=== PATIENT | female | born 1935 | race Caucasian/White ===

== ENCOUNTER → 2017-11-23 10:02 | Outpatient (CLI) | payer MEDICARE, OTHER, SELFPAY ==
--- NOTE | 2017-11-23 | DI.RAD.S_ITS ---
PROCEDURE: XR HIP W PEL IF DONE RT 2V INDICATIONS: RIGHT HIP PAIN TECHNIQUE: 2 views of the hip were acquired. COMPARISON: [facility], CR, L-SPINE 2-3 VIEWS, 02/28/2016, 16:04. [facility], CR, XR PELVIS W LATERAL HIP LT, 08/08/2015, 11:18. [facility], CR, L-SPINE 2-3 VIEWS, 12/26/2016, 9:33. [facility], CR, HIP 2V RIGHT, 01/09/2015, 11:05. FINDINGS: Bones: No fractures or dislocations. No suspicious bony lesions. The visualized pelvic ring appears intact. There is severe narrowing of the right hip joint with near bone on bone contact along the axial portion of the joint, subchondral sclerosis and cystic change. Periarticular osteophyte formation is present. Acetabula protrusio noted. Soft tissues: No suspicious soft tissue calcifications or masses. 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 Dictated by: Fredrick Sandoval RRA Interpreted: Teetee Savage MD on 11/23/2017 at 10:44 Approved by: Teetee Savage MD, PhD on 11/23/2017 at 12:03
== END ==
PROVIDERS: Family Provider Family Medicine; PCP Family Medicine; Visit Provider Family Medicine
DX: M25.551 Pain in right hip (principal); M16.11 Unilateral primary osteoarthritis, right hip; M24.7 Protrusio acetabuli
CPT/HCPCS: 73502

== ENCOUNTER → 2018-04-07 11:53 | Outpatient (CLI) | payer MEDICARE, OTHER, SELFPAY ==
[2018-04-07 12:35] LABS: Add Manual Diff / Slide Review NO; Basophils Absolute Auto 100 /uL (0-100); Basophils Percent Auto 0.7 % (0-2); Eosinophils Absolute Auto 300 /uL (0-450); Hematocrit 40.4 % (36-46); Hemoglobin 13.2 g/dL (12.0-16.0); Lymphocytes Absolute Auto 1700 /uL (1100-4500); Mean Corpuscular HGB Conc 32.7 % (30-36); Mean Corpuscular Hemoglobin 29.3 PG (26-34); Mean Corpuscular Volume 89.4 fL (80-100); Monocytes Absolute Auto 500 /uL (0-900); Monocytes Percent Auto 6.9 % (3-14); Neutrophils Absolute Auto 4800 /uL (1500-7000); Neutrophils Percent Auto 65.4 % (50-75); Platelet Count 194 X10^3/uL (150-400); Red Blood Cell Count 4.52 X10^6/uL (4.0-5.2); Red Cell Distribution Width 14.1 % (11.6-14.8); White Blood Cell Count 7.3 X10^3/uL (4.5-11.0)
[2018-04-07 12:45] LABS: Hemoglobin A1C% w Est Avg Glu 5.7 % (4.0-6.0)
[2018-04-07 12:58] LABS: Blood Urea Nitrogen 21 mg/dL (7-17); Calcium 9.5 mg/dL (8.4-10.2); Carbon Dioxide 28 mmol/L (22-32); Chloride 106 mmol/L (98-107); Estimated Glomerular Filt Rate > 60.0 mL/min (>60); Glucose 93 mg/dL (80-110); HEMOLYSIS < 15 (0-50); Potassium 4.2 mmol/L (3.4-5.1); Sodium 141 mmol/L (137-145)
[2018-04-07 13:58] LABS: Appearance Urine UA CLEAR; Bilirubin Urine UA NEGATIVE (NEGATIVE); Color Urine UA YELLOW; Glucose Urine UA NEGATIVE (Negative); Ketones Urine UA NEGATIVE (NEGATIVE); Leukocyte Esterase Urine UA NEGATIVE (NEGATIVE); Nitrite Urine UA NEGATIVE (Negative); Occult Blood Urine UA TRACE-LYSED (Negative); Protein Urine UA NEGATIVE (Negative); Specific Gravity Urine UA 1.025 (1.000-1.035); Urobilinogen Urine UA 0.2 E.U./dL (0.2)
[2018-04-07 14:16] LABS: Amorphous Sediment Urine 1+; Bacteria Urine Occasional (0-1); Culture Indicated Urine Cult Not Indicated; Mucus Urine 1+ (Negative); RBC Urine 0-1/HPF (0-5/HPF); Squamous Epithelial Cell Urine 1-5 /HPF; WBC Urine 1-5/HPF (0-5/HPF)
== END ==
PROVIDERS: Family Provider Family Medicine; PCP Family Medicine; Visit Provider Orthopaedic Surgery
DX: N39.9 Disorder of urinary system, unspecified (principal); Z13.1 Encounter for screening for diabetes mellitus; Z01.818 Encounter for other preprocedural examination; Z01.812 Encounter for preprocedural laboratory examination
CPT/HCPCS: 36415; 80048; 81001; 83036; 85025; 93005; 93010

== ENCOUNTER 2018-06-01 06:14 | Inpatient (IN) | payer MEDICARE, OTHER, SELFPAY ==
[2018-05-18 14:02] VITALS: BMI 28.8
[2018-06-01] VITALS (23 sets, daily range): BP systolic 104–174; BP diastolic 45–85; PULSE 43–96; RESP 11–21; TEMP 36.1–37; O2SAT 94–100; BMI 27.1
--- NOTE | 2018-06-01 | DI.RAD.S_ITS ---
PROCEDURE: XR HIP W PEL IF DONE RT 2V INDICATIONS: post operative right hip TECHNIQUE: 2 views of the hip were acquired. COMPARISON: [facility], CR, XR HIP W PEL IF DONE RT 2V, 06/01/2018, 9:14. FINDINGS: Bones: Expected postoperative changes are present related to a right hip arthroplasty. The metallic prosthetic components appear to be appropriately positioned without periprosthetic fracture evident. Postoperative changes of the left hip are also present related to previous left hip arthroplasty. No displaced pelvic fractures are identified. Soft tissues: No suspicious soft tissue calcifications or masses. Expected postoperative changes within the soft tissues overlying the right hip are evident but there is a soft tissue air and edema. A surgical drainage catheter is present. No unexpected radiopaque foreign bodies are appreciated. IMPRESSION: Expected post surgical changes related to right hip arthroplasty. Dictated by: Juarez Buck M.D. on 06/01/2018 at 10:39 Approved by: Juarez Buck M.D. on 06/01/2018 at 10:40
--- NOTE | 2018-06-01 06:00 | DI.RAD.S_ITS ---
PROCEDURE: XR HIP W PEL IF DONE RT 2V INDICATIONS: Intraoperative right total hip. TECHNIQUE: Single AP view of the pelvis/bilateral hips was obtained. COMPARISON: [facility] [place], CR, XR PELVIS WITH BILATERAL HIPS 5 VIEWS, 04/07/2018, 11:05. [facility], CR, XR HIP W PEL IF DONE RT 2V, 11/23/2017, 10:13. [facility], CR, HIP 2V RIGHT, 01/09/2015, 11:05. [facility] CR, HIP 2V RIGHT, 04/27/2013, 10:43. [facility], CR, HIP 2V RIGHT, 10/22/2011, 13:30. FINDINGS: Bones: External radiopaque hardware projects over the left iliac wing, obscuring underlying anatomy. Interval placement of a right total hip arthroplasty with right arthroplasty hardware demonstrating no periprosthetic fracture or loosening. There is redemonstration of the left total hip arthroplasty, without evidence of acute hardware complication. Partially imaged posterior lumbar spinal fusion hardware noted. Soft tissues: Soft tissue emphysema and edema of the right hip incision with postsurgical change. IMPRESSION: 1. Interval right total hip arthroplasty placement without radiographic evidence of acute hardware complication. 2. Redemonstrated left total hip arthroplasty without radiographic evidence of acute hardware complication. Dictated by: Rod Reese M.D. on 06/01/2018 at 10:16 Approved by: Rod Reese M.D. on 06/01/2018 at 10:22
[2018-06-01] MEDS: VANCOMYCIN 1,000 MG/200 ML FROZ.PIGGY 200 MG IV (07:05)
[2018-06-01] MEDS: LACTATED RINGERS 1,000 ML 42 ML IV ×2 (07:05→11:09)
[2018-06-01] MEDS: PREGABALIN 75 MG CAPSULE PO (07:06)
[2018-06-01] MEDS: CELECOXIB 200 MG CAPSULE PO (07:06)
[2018-06-01] MEDS: ACETAMINOPHEN 325 MG TABLET 975 MG PO ×3 (07:06→21:52)
[2018-06-01] MEDS: CEFAZOLIN 2 GM/100 ML FROZ.PIGGY IV ×3 (08:09→23:44)
--- NOTE | 2018-06-01 08:37 | SUR.OPER ---
Lateral on padded OR bed. Gel axillary roll. Arms secured on padded armboard with pillow supporting top arm. Padded hip positioner braces x4 - anterior and posterior chest and pelvis. Additional gel pad used anterior pelvis. Gel pad under bottom leg from knee to foot and secured with tape over sheet.
[2018-06-01] MEDS: BUPIVACAINE 0.25% W/ EPI 30 ML VIAL 60 ML INJ (08:43)
[2018-06-01] MEDS: BUPIVACAINE LIPOSOME 266 MG/20 ML VIAL INJ (08:44)
[2018-06-01] MEDS: POVIDONE-IODINE 15 ML, SODIUM CHLORIDE 0.9% 250 ML TOP (08:47)
[2018-06-01] MEDS: SODIUM CHLORIDE IRRIG SOLUTION 250 ML, EPINEPHrine 1 MG IRR (08:49)
[2018-06-01] MEDS: TRANEXAMIC ACID 1,000 MG VIAL 1000 MG INJ ×2 (09:32→09:33)
--- NOTE | 2018-06-01 10:45 | PM.OP.1 ---
Operative Date/Time/Diagnoses Date of procedure: 06/01/18 Time of procedure: 08:00 Pre-op diagnosis: Right hip osteoarthritis Post-op diagnosis: same Procedure & Clinicians Procedure: Right total hip arthroplasty Same procedure as scheduled: Yes Indications: The patient has had progressively worsening right hip pain with radiographic changes consistent with arthritis. Non-operative management has failed and the patient has requested total hip replacement. The risks, benefits and alternatives to surgery were discussed with the patient prior to proceeding. Risks discussed included, but were not limited to, failure to relieve pain, leg length discrepancy, dislocation, stiffness, infection, nerve damage, deep venous thrombosis, pulmonary embolism, stroke, coma, heart attack, permanent paralysis and , as well as the potential need for eventual revision of the prosthetic. 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 The patient received pre-operative antibiotics and was taken to the operating room and placed on the operative table in the left lateral decubitus position after satisfactory anesthesia. A multimedia authoring specialist out was performed. The right leg was prepared from the ankle to the iliac crest with ChloroPrep in the usual fashion and draped through sterile drapes. The hip was approached through an approximately 20 cm incision centered over the greater trochanter and curving gently posteriorly as it went proximally. This was carried sharply to the fascia cayden, which was divided and retracted with a self retaining retractor. The trochanteric bursa was excised with care being taken to avoid the sciatic nerve, which was identified and protected throughout the case. The short external rotators were incised and the capsulomuscular flap was raised and tagged for later repair. The hip was dislocated, and a femoral neck osteotomy performed approximately 15 mm above the lesser trochanter. Retractors were placed around the femur. The canal was opened with a box cutting osteotome, followed by a T handled reamer and a lateralizing reamer. The chili pepper broach was then used, followed by sequential broaching until there was good stability of the broach in the femur. Retractors were placed to expose the acetabulum. The labrum and central soft tissues were removed. Reaming was performed initially going up in 2 mm increments, then 1 mm increments until good bite was obtained with an odd sized reamer. The cup 1 mm larger than the last reamer was then inserted using the appropriate anteversion guides. A trial neutral liner was placed. The broach was placed in the canal. A trial head and neck were then placed and the hip relocated and checked for leg length and stability. An intraoperative film confirmed the component position and no evidence of fracture. The patient was stable in the position of sleep, of squatting, and could be put through a range of motion with 45 degrees internal rotation without dislocation. At 90 degrees flexion, internal rotation to 80 was possible before dislocation. This was felt to be satisfactory and the appropriate components were opened, and the trials were removed. The acetabulum was checked and stabilized further with a single 15mm screw that had good bite. The acetabular liner was impacted into position. The final stem was then impacted into the prepared femoral canal. A brief Betadine soak was performed while trialing with head options. The hip was meticulously irrigated with normal saline. Finally the femoral head was impacted onto the stem. The acetabulum was cleared of all material and the hip relocated one final time. The capsulomuscular flap was then repaired to the greater trochanter though an awl hole using the tag sutures. The short external rotators were repaired with a nonabsorbable suture. A deep drain was placed and brought out anteriorly. The fascia cayden was closed with black braided nylon. The subcutaneous layer was closed with barbed sutures and SteriStrips. An Aquacel Ag dressing was applied and the patient was taken to recovery having tolerated the procedure well. Complications: none Condition: stable Disposition: Acute Care Plan for aftercare: The patient will be maintained on a standard total hip replacement protocol with weight bearing as tolerated and posterior hip precautions. The patient will receive Aspirin and sequential compression devices for DVT prophylaxis. The patient will be discharged home when safe for the home environment.
[2018-06-01] MEDS: fentaNYL 100 MCG/2 ML INJ 50 MCG IV ×2 (10:48→11:16)
[2018-06-01] MEDS: hydrOXYzine 50 MG/ML INJ 25 MG IM (10:56)
--- NOTE | 2018-06-01 12:22 | SUR.PHASEI ---
Post op PACU Note: Patient stable. HR 40's. Asymptomatic sinus bradycardia. Single short burst of HR in 90- 105 then HR consistently in 40-50's. Dr. William / Dr. Head informed. EKG verbal order completed. Patient awake, responsive. Pain level 5/10. Stable for transfer to Acute Care when cleared by Anesthesia/Sonido.
[2018-06-01] MEDS: LACTATED RINGERS 1,000 ML 125 ML IV ×2 (13:27→22:01)
[2018-06-01] MEDS: TRAMADOL 50 MG TABLET PO (13:39)
--- NOTE | 2018-06-01 14:22 | SUR.PHASEI ---
Late entry: Patient stable and transfered to IP room 213. VSS on arrival with HR 58. Verbal report given at bedside to Joann MULLINS. Student nurse present. Dressing CDI to right hip, SCD's on. IV site intact. Hemovac compressed with scan sanguinous drainage in tubing. Family in waiting room. Continue with plan of care.
--- NOTE | 2018-06-01 14:41 | PC.NURSE ---
Day Shift- Report rec'd from SUSANNA Kunz in PACU at 1235. Previously had requested to verify transfer orders with HR of 45-47. EKG done in PACU. Other vital signs stable. Pt arrived to unit via bed at 1245. Right hip aquacell dressing CDI with Hemovac in place on compression suction. CMS+, PPP weak but palpable to right dorsal foot. On 2L NC at 98%, on continuous O2 monitoring. Pt stated very uncomfortable to right hip and lower back area, repositioned onto left side which pt favors. Reported 6-8/10 pain, on IV PRN meds ordered, fax sent to Dr. Head in surgery. As pt was uncomfortable, repositioned onto back and HOB raised. Dr. Head came and saw pt at bedside around 1330. Tramadol prn given at 1340 with water, juice and chocolate pudding. Upon reassessment at 1440, pt c/o 4/10 pain. Family in room.
--- NOTE | 2018-06-01 15:00 | PT.IIE ---
Current Diagnoses Unilateral primary osteoarthritis, right hip (06/01/18) Surgery Performed Operation Date: 06/01/18 07:45 Actual Procedures p Total Hip Arthroplasty Posterior(Right) - Chelsea Head MD Surgical History (Last Updated 05/18/18 @ 14:31 by Diane Cruz, RN) History of bilateral cataract extraction (Acute) History of prophylactic mastectomy of left breast (Acute) History of total left hip arthroplasty (Acute) Hx of appendectomy (Acute) Hx of microdiscectomy (Acute) Medical History (Last Updated 05/18/18 @ 14:34 by Diane Cruz RN) Asthma (Acute) Breast cancer, right (Acute) Former smoker, stopped smoking many years ago (Acute) HLD (hyperlipidemia) (Acute) HTN (hypertension) (Acute) Hearing impaired (Acute) History of chemotherapy (Acute) Hypothyroidism (Acute) Impaired vision (Acute) LAFB (left anterior fascicular block) (Acute) PVD (peripheral vascular disease) (Acute) Spinal stenosis (Acute) Physical Therapy Inpatient Evaluation/Re-Eval M1 PT/OT-IP Prior Functional Status Start: 06/01/18 16:01 Freq: NEEDED Status: Active Protocol: Document 06/01/18 15:00 AB (Rec: 06/01/18 16:15 AB [id number]) Medical Review Prior Functional Status Medical History Reviewed Yes Communication able to make needs known Mobility and Gait stated that she is mod I with all mobilities and ambulation without AD indoors but occasionally uses a tripod cane for outdoor ambulation Social History Household Members children Living Arrangements House Number of Floors (Floors) Two Floors Number of Stairs To Enter/Railing? pt will stay on main level of the house has 5 steps to enter with bilateral rails Home Environment High Toilet Walk in Shower Home Equipment Front Wheel Walker Raised Toilet Seat w/Armrests Shower Seat without Backrest Lift Recliner Grab Bars In Shower Employment Status Retired Additional Social History Comment pt's daughter and daughter-in- law will assist pt at home M2 PT-IP Current Condition Start: 06/01/18 16:01 Freq: NEEDED Status: Active Protocol: Document 06/01/18 15:00 AB (Rec: 06/01/18 16:15 AB [id number]) Physical Therapy Current Condition Current Condition Evaluation Date 06/01/18 Treatment Diagnosis s/p R CANDY posterior approach; difficulty in walking Onset Date 06/01/18 Precautions Posterior Hip Precautions No Hip Flexion > 90 degrees No Hip Internal Rotation No Hip Adduction Weight Bearing Status Weight Bearing Status Weight Bear as Tolerated M3 PT-IP Subjective Start: 06/01/18 16:01 Freq: NEEDED Status: Active Protocol: Document 06/01/18 15:00 AB (Rec: 06/01/18 16:15 AB [id number]) Subjective Physical Therapy Visit Type Type Initial Evaluation Visit Start Time 15:00 Visit Stop Time 15:42 Total Visit Minutes 42 Number of CONCRETE GUN OPERATOR Visits 0 Physical Therapy Visit Comments Patient Comments pt agreeable to do PT Therapy Pain Assessment Pain When Pain Assessed At Rest Pain Present Pain Present Pain Reported Location Right Hip Intensity 7 Scale Used Numeric (1 - 10) Pain Management Techniques Apply Cold Timing of Activity with Medications M4 PT-IP Mobility and Gait Start: 06/01/18 16:01 Freq: NEEDED Status: Active Protocol: Document 06/01/18 15:00 AB (Rec: 06/01/18 16:15 AB [id number]) PT-Bed Mobility Assessment Supine to Sit Supine to Sit Contact Guard Assistance Sit to Supine Sit to Supine Standby Assistance Scooting Scooting to Edge of Bed Standby Assistance PT-Transfer Assessment Sit to and From Stand Sit to and from Stand Moderate Assistance 1 Person Assistance Use of Upper Extremities Equipment Transfer Assistive Device Gait Belt Front Wheeled Walker Orthotic/Prosthetic Devices or Brace: No Transfers Transfer Destination Toilet Transfer Technique pt ambulated to the toilet using FWW Transfer Ability Level of Assist Moderate Assistance 1 Person Assistance Use of Upper Extremities Gait Assessment Gait Gait Assistance Required: Moderate Assistance Distance (Feet) 10 Able to Maintain Weight Bearing Status Yes During Gait Assistive Devices Assistive Device Gait Belt Front Wheeled Walker Orthotic/Prosthetic Devices or Brace: No Gait Deviations General Gait Pattern Antalgic Decreased Stride Length Decreased Feet Clearance Factors Limiting Gait Function Factors Limiting Gait Function Decreased Activity Tolerance Decreased Strength Limited Range of Motion Pain Poor Balance Poor Safety Awareness Comments Gait Comments (+) LOB during ambulation using FWW requiring mod A for recovery. PT-Balance Assessment Sitting Balance and Reactions Static Sitting Balance Ability Good Dynamic Sitting Balance Ability Good Standing Balance and Reactions Static Standing Balance Ability Fair Dynamic Standing Balance Ability Poor Device Used FWW M5 PT-IP Objective Assessments Start: 06/01/18 16:01 Freq: NEEDED Status: Active Protocol: Document 06/01/18 15:00 AB (Rec: 06/01/18 16:15 AB [id number]) Orientation Orientation/Cognition Level of Alertness Alert Orientation Name Age Place Situation Language Function Ability Hard of Hearing Safety Awareness Decreased Safety Awareness Memory Description Short Term Impaired Gross Range of Motion Lower Extremity ROM Assessment Right Impaired Impairments R knee flexor tightness: Strength Lower Extremity Strength Assessment Right Impaired Hip 3-/5 Knee 3+/5 Sensation Assessment Sensation Gross Sensation WNL Muscle Tone Muscle Tone WNL Yes M6 PT-IP Treatment Start: 06/01/18 16:01 Freq: NEEDED Status: Active Protocol: Document 06/01/18 15:00 AB (Rec: 06/01/18 16:15 AB [id number]) Physical Therapy Treatment Exercises Exercises Heel Slides Education Education Provided Precautions Weight Bearing Status Post-Op Packet Safety M7 PT-IP Assessment and Plan Start: 06/01/18 16:01 Freq: NEEDED Status: Active Protocol: Document 06/01/18 15:00 AB (Rec: 06/01/18 16:15 AB [id number]) PT Summary Assessment and Plan Potential Rehabilitation Potential Good Status of Condition at Evaluation Evolving Summary Impairments Pain ROM Strength Balance Coordination Sensation Tone Cognition Bed Mobility Transfers Gait Activity Tolerance Assessment Summary pt requiring mod A with mobility at this time but will likely improve during hospital stay. pt plans to go home with family to assist her. will conduct caregiver training when appropriate and will also complete stair climbing training. Goals Bed Mobility Goal Independent Transfer Goal Standby Assistance Front Wheeled Walker Gait Goal Standby Assistance Front Wheel Walker Gait Distance 200 Other Goals up/down 5 steps with bilateral rails SBA Days to Meet Goals 5 Frequency of Treatment Frequency Of Treatment Twice a Day Treatment Plan Physical Therapy Treatment Plan Bed Mobility Training Transfer Training Gait Training Therapeutic Exercise Balance Retraining Post Op Education Discharge Planning Hot or Cold Pack Neuromuscular Re-ed Coordination Retraining Manual Therapy Recommendations To Nursing Amount of Assist Needed 1 Person Assist Discharge Recommendations PT Discharge Recommendations Home with Assistance Outpatient PT
--- NOTE | 2018-06-01 17:01 | PC.NURSE ---
kwadwo shift- assumed care of pt from outgoing shift. pt awake in room with family at bedside. OT in to work with pt. upon assessment Pt laying comfortably in bed. scds on lien. cooperative with nursing staff. denies pain. states she is just very tired. used IS and did a fantastic job. cont pulse ox on. HR 80s, O2- 94-98% depending if pt is deep breathing. instructed to take deep breaths even if not using IS. bed alarm on. call light and belongings within reach. will continue to monitor.
[2018-06-01] MEDS: KETOROLAC 15 MG/ML VIAL IV ×2 (17:06→23:44)
[2018-06-01] MEDS: LOSARTAN 50 MG TABLET PO (21:53)
[2018-06-01] MEDS: ASPIRIN EC 81 MG TABLET PO (21:53)
[2018-06-01] MEDS: ATORVASTATIN 20 MG TABLET PO (21:53)
[2018-06-01] MEDS: DOCUSATE 100 MG CAPSULE PO (21:53)
--- NOTE | 2018-06-02 00:26 | PC.NURSE ---
2300- POD#0 R total hip; aquasil drsg CDI; hemovac in place. Pt denies any pain at this time; limited ROM moving 1PA w/ FWW. L wrist IV running LR as ordered. Hx of bilat mastectomy, BP checked on R ankle. Bilat SED's in place. 0000- Pt asking for a break from SED's so she can sleep. IV Toradol given as ordered; abx hung as ordered. CMS intact
[2018-06-02 03:51] VITALS: BP 134/68; PULSE 63; RESP 16; TEMP 36.6; O2SAT 97
[2018-06-02] MEDS: LEVOTHYROXINE 50 MCG TABLET PO (05:10)
[2018-06-02] MEDS: KETOROLAC 15 MG/ML VIAL IV ×2 (05:10→12:10)
--- NOTE | 2018-06-02 08:12 | P.PN_ITS ---
Subjective Date Patient Seen: 06/02/18 Time Patient Seen: 08:09 Interval history: Hospital day 2, postop day 1 following right posterior total hip arthroplasty by Dr. Head. Patient has been stable postoperatively. She has not been out of bed yet. No PT yet. Has been getting Toradol IV and tramadol and Tylenol for pain. patient wanting to avoid narcotics. Hemovac in place. patient also seen by Dr. Head this morning. Exam Vital Signs (past 8 hours): - 06/02/18 03:51 Temperature 97.8 F Pulse Rate 63 Respiratory Rate 16 Blood Pressure 134/68 Pulse Oximetry 97 Oxygen Delivery Method Nasal Cannula Oxygen Flow Rate 0 Narrative Exam Narrative: Alert, oriented no acute distress resting in bed. legs. Aquacel dressing to right hip is dry without drainage or inflammation. Hemovac in place. no calf pain or swelling. Pulses symmetrical. Assessment & Plan Post-op Postoperative Procedures Operation Date: 06/01/18 07:45 Actual Procedures Side Surgeon p Total Hip Arthroplasty Posterior Right Chelsea Head MD Plan: Patient will begin working with PT today. DC Hemovac today. we will observe for activity level and pain control and if patient is stable may be di scharged home later today if cleared by PT. If not she will wait until tomorrow. Will try to have patient use ibuprofen mostly for pain control at home rather than narcotics.
[2018-06-02 09:00] VITALS: BP 137/71; PULSE 61; RESP 16; TEMP 36.4; O2SAT 96
--- NOTE | 2018-06-02 09:07 | PM.DS.1 ---
History of Present Illness Date Patient Seen: 06/02/18 Time Patient Seen: 09:07 Chief complaint: [id number] Narrative: Hospital day 2, postop day 1 following right posterior total hip arthroplasty. patient remained stable postoperatively. She was able to get up out of bed with minimal assist to chair this morning. Still awaiting PT. Pain has been controlled with Toradol and tramadol. Patient would like to try to go home today if possible. Discharge Providers Date of admission: 06/01/18 06:14 Discharge Date: 06/02/18 Primary care physician: Jayme Arizmendi MD Consults: 06/01/18 06:00 Consult to Anesthesiology Routine Comment: Consulting Provider: Anesthesiologist Reason for consultation: Regional block for post operative pain control 06/01/18 10:37 Consult to Respiratory Therapy Evaluate & Treat Comment: Physician Instructions: Evaluate and treat 06/01/18 12:58 Consult to Discharge Planning Routine Comment: Consult to Physical Therapy Evaluate & Treat Comment: Physician Instructions: post op CANDY protocol Consult to Respiratory Therapy Evaluate & Treat Comment: Physician Instructions: Evaluate and treat Discharge provider: Ishmael Back PA-C Summary Discharge Diagnosis: Status post a right posterior total hip arthroplasty Hospital Course: Patient brought to hospital on 06/01/2018 for above noted surgery. She remained stable postoperatively. Progressed with physical therapy. Discharged home on postop day 1. Status at Discharge Cognitive/behavioral status at discharge: oriented Functional status at discharge: uses cane/walker Overall status at discharge: patient is progressing back to baseline Time Spent with Patient Less than 30 minutes Exam Vital Signs (past 8 hours): - 06/02/18 03:51 Temperature 97.8 F Pulse Rate 63 Respiratory Rate 16 Blood Pressure 134/68 Pulse Oximetry 97 Oxygen Delivery Method Nasal Cannula Oxygen Flow Rate 0 Narrative Exam Narrative: Alert, oriented no acute distress resting in chair. Legs. Aquacel dressing to right hip is dry without drainage or inflammation. Hemovac in place. no calf pain or swelling. Pulses symmetric good. Discharge Plan Discharge Plan Patient Disposition: Home Discharge comment: Discharge home today after cleared by PT. She has a [facility] patient. she does have a prescription for oxycodone at home. Discharge Med Rec/Prescriptions Prescriptions: New acetaminophen 325 mg Tablet 975 mg PO TID Qty: 30 RF: 0 aspirin 81 mg Tablet,Delayed Release (Dr/Ec) 81 mg PO BID Qty: 60 RF: 0 Continued CA PANTOTHENATE/FOLIC ACID/VIT (MULTIVITAMIN) 1 tab PO QDAY Qty: 0 RF: 0 CALCIUM CARBONATE (#CALCIUM) 600 mg PO QDAY Qty: 0 RF: 0 VITAMIN D (Vitamin D3) 1,000 unit PO QDAY Qty: 0 RF: 0 levothyroxine [Synthroid] 50 MCG tablet 0.05 mg PO QDAY Qty: 0 RF: 0 atorvastatin [Lipitor] 20 MG tablet 20 mg PO BEDTIME Qty: 0 RF: 0 losartan 50 MG tablet 50 mg PO BID Qty: 0 RF: 0 alum-mag hydroxide-simeth [Mag-Al Plus] 30 ML suspension 30 ml PO QIDP PRN (Reason: Diarrhea) RF: 0 ibuprofen 200 mg Capsule 400 mg PO BEDTIME RF: 0 Follow up/Referrals: Jayme Arizmendi MD [Primary Care Provider] - Provider Discharge Instructions Diet: Diet as Tolerated Activity: Ambulate as tolerated. Use walker as needed. right posterior hip precautions x6 weeks postop. Cold/Heat Therapy: Cold pack to right hip area as needed. Skin/Wound/Dressing Care Report to your healthcare provider any signs of infection, such as:: chills, fever, night sweats, increased pain, unusual drainage and unusual redness Dressing: Keep Aquacel dressing in place until postop visit. Visit Report/Discharge Packet Instructions: DI for Hip Replacement Discharge Data Primary Care Provider: Jayme Arizmendi Attending Provider: Chelsea Head Admit Date/Time: 06/01/18 06:14
--- NOTE | 2018-06-02 09:41 | PT.IPTN ---
Current Diagnoses Unilateral primary osteoarthritis, right hip (06/01/18) Surgery Performed Operation Date: 06/01/18 07:45 Actual Procedures p Total Hip Arthroplasty Posterior(Right) - Chelsea Head MD Physical Therapy Treatment Note M2 PT-IP Current Condition Start: 06/01/18 16:01 Freq: NEEDED Status: Active Protocol: Document 06/01/18 15:00 AB (Rec: 06/01/18 16:15 AB [id number]) Physical Therapy Current Condition Current Condition Evaluation Date 06/01/18 Treatment Diagnosis s/p R ACNDY posterior approach; difficulty in walking Onset Date 06/01/18 Precautions Posterior Hip Precautions No Hip Flexion > 90 degrees No Hip Internal Rotation No Hip Adduction Weight Bearing Status Weight Bearing Status Weight Bear as Tolerated M3 PT-IP Subjective Start: 06/01/18 16:01 Freq: NEEDED Status: Active Protocol: Document 06/02/18 09:41 AB (Rec: 06/02/18 11:29 AB [id number]) Subjective Physical Therapy Visit Type Type Treatment Note Visit Start Time 09:41 Visit Stop Time 10:15 Total Visit Minutes 34 Number of OTM CONSULTANT Visits 0 Physical Therapy Visit Comments Patient Comments pt agreeable to do PT Therapy Pain Assessment Pain When Pain Assessed During Mobility Pain Present Pain Present Pain Reported Location Right Hip Intensity 8 Scale Used Numeric (1 - 10) Pain Management Techniques Re-positioning Timing of Activity with Medications M4 PT-IP Mobility and Gait Start: 06/01/18 16:01 Freq: NEEDED Status: Active Protocol: Document 06/02/18 09:41 AB (Rec: 06/02/18 11:29 AB [id number]) PT-Bed Mobility Assessment Supine to Sit Supine to Sit Standby Assistance Sit to Supine Sit to Supine Standby Assistance PT-Transfer Assessment Sit to and From Stand Sit to and from Stand Minimal Assistance Moderate Assistance 1 Person Assistance Use of Upper Extremities Equipment Transfer Assistive Device Gait Belt Front Wheeled Walker Orthotic/Prosthetic Devices or Brace: No Transfers Transfer Destination Bed Transfer Technique Stand Step Pivot Transfer Ability Level of Assist Minimal Assistance 1 Person Assistance Use of Upper Extremities Comments Mobility Comments completed sit <>stand x 5 reps requiring min to mod A and max cues for techniques and to maintain hip precautions. completed supine <>sit x 3 reps requiring SBA with cues for techniques. Gait Assessment Gait Gait Assistance Required: Minimum Assistance Distance (Feet) 75 Able to Maintain Weight Bearing Status Yes During Gait Assistive Devices Assistive Device Gait Belt Front Wheeled Walker Orthotic/Prosthetic Devices or Brace: No Gait Deviations General Gait Pattern Antalgic Ataxic Decreased Feet Clearance Step-to Gait Factors Limiting Gait Function Factors Limiting Gait Function Decreased Activity Tolerance Decreased Strength Difficulty Following Directions Limited Range of Motion Pain Poor Balance Poor Safety Awareness M5 PT-IP Objective Assessments Start: 06/01/18 16:01 Freq: NEEDED Status: Active Protocol: Document 06/01/18 15:00 AB (Rec: 06/01/18 16:15 AB [id number]) Orientation Orientation/Cognition Level of Alertness Alert Orientation Name Age Place Situation Language Function Ability Hard of Hearing Safety Awareness Decreased Safety Awareness Memory Description Short Term Impaired Gross Range of Motion Lower Extremity ROM Assessment Right Impaired Impairments R knee flexor tightness: Strength Lower Extremity Strength Assessment Right Impaired Hip 3-/5 Knee 3+/5 Sensation Assessment Sensation Gross Sensation WNL Muscle Tone Muscle Tone WNL Yes M6 PT-IP Treatment Start: 06/01/18 16:01 Freq: NEEDED Status: Active Protocol: Document 06/02/18 09:41 AB (Rec: 06/02/18 11:29 AB [id number]) Physical Therapy Treatment Education Education Provided Precautions Safety Other Treatments Other Treatment Performed pt continues to require cues to recall hip precautions M7 PT-IP Assessment and Plan Start: 06/01/18 16:01 Freq: NEEDED Status: Active Protocol: Document 06/02/18 09:41 AB (Rec: 06/02/18 11:29 AB [id number]) PT Summary Assessment and Plan Potential Rehabilitation Potential Good Summary Impairments Pain ROM Strength Balance Coordination Sensation Tone Cognition Bed Mobility Transfers Gait Activity Tolerance Progress Towards Goals Slow Progress due to Pain Slow Progress due to Medical Issues Assessment Summary pt requiring min to mod A with mobility and plans to go home with family to assist. will need to conduct caregiver training and stair training prior to d/c. Goals Bed Mobility Goal Independent Transfer Goal Standby Assistance Front Wheeled Walker Gait Goal Standby Assistance Front Wheel Walker Gait Distance 200 Other Goals up/down 5 steps with bilateral rails SBA Days to Meet Goals 5 Frequency of Treatment Frequency Of Treatment Twice a Day Treatment Plan Physical Therapy Treatment Plan Bed Mobility Training Transfer Training Gait Training Therapeutic Exercise Balance Retraining Post Op Education Discharge Planning Hot or Cold Pack Neuromuscular Re-ed Coordination Retraining Manual Therapy Recommendations To Nursing Amount of Assist Needed 1 Person Assist Discharge Recommendations PT Discharge Recommendations Home with Assistance Outpatient PT
[2018-06-02] MEDS: MULTIVITAMIN 1 TABLET 1 TAB PO (09:46)
[2018-06-02] MEDS: LOSARTAN 50 MG TABLET PO (09:46)
[2018-06-02] MEDS: DOCUSATE 100 MG CAPSULE PO (09:46)
[2018-06-02] MEDS: ASPIRIN EC 81 MG TABLET PO (09:46)
[2018-06-02] MEDS: CHOLECALCIFEROL (VITAMIN D3) 1,000 UNIT TABLET 1000 UNIT PO (09:47)
[2018-06-02] MEDS: ACETAMINOPHEN 325 MG TABLET 975 MG PO ×2 (09:47→14:11)
[2018-06-02] MEDS: OXYCODONE IR 5 MG TABLET PO ×2 (10:00→13:31)
--- NOTE | 2018-06-02 10:06 | CM.DANOTE ---
Addendum entered by OLLIE Rock 06/02/18 15:37: ADD: SW met bedside with pt and Dtr after PT CG training and pt and Dtr confirm that they are comfortable with d/c home today and outpt PT already set up. No SW needs and no pt concerns. SW updated RN and they will d/c home this evening. OLLIE Rock Original Note: Patient is an 82 year old female who was admitted on 06/01/18 for hip surgery. Pt has [facility] and [facility] for insurance and her PCP is Dr. Lupis Arizmendi. EMR was reviewed. Per Ortho PA, pt medically stable for likely d/c home today pending final PT stairs and CG training. Per PT yesterday, recommending likely d/c home with family assist and outpt PT pending final CG/Stairs training. SW met bedside with pt and explained role and updated white board and pt confirms that she lives at home in [place] with her adult Dtr/DPOA Hanny and is mostly independent with ADL's and utilizes a cane for longer ambulation. Pt confirms that in Dec 2016 pt was discharged to [facility] rehab after surgery before safely going home with Dtr. Pt states that she is currently comfortable with the plan of discharging home with her adult Dtr to assist and her Dtr inlaw staying for at least 3 days after discharge to be home with her while her Dtr works. Pt is looking forward to further PT and CG training today to confirm she is comfortable with discharge home today. Plan: SW to follow for likely pt d/c home today via Dtr POV after further PT training and stairs. OLLIE Rock Discharge Planning/Care Management CM Discharge Assessment Start: 06/02/18 10:04 Freq: Status: Active Protocol: Document 06/02/18 10:04 BF (Rec: 06/02/18 10:06 [id number]) Discharge Planning Assessment Assigned Field Education Director OLLIE Delcid DPOA/Assigned Designee Name Dtr Hanny Glaser Contact Information [phone] Advance Directives? Yes Advance Directives on File No History Provided By Patient Medical Record Has Patient been admitted in last 30 No days? Prior Living Arrangements House Household Members children Type of transporation used prior to Relies on Others admit Comment Lives with Dtr Hanny in [place] Independent with ADL's Yes Is patient alert and oriented? Yes Needs Assistance With Managing Medications Home Chores / Shopping Caregiver for Another No DME Already Rented / Owned Bath Bench FWW / Walker Cane Comment Waiting for further PT to confirm home with family and outpt PT Barriers to Discharge No Discharge Plan Home Community Services Physical Therapy Transportation Arrangement Family can likely provide transport at d/c. Referrals Initiated None needed Whiteboard Updated in Patient Room with Yes name and ext. # of Field Education Director Review Status In Process Please Provide Date Initial DC 06/02/18 Assessment Was Performed Next Review Type Continued Stay Review Pre-Anesthesia Assessment Start: 05/18/18 14:02 Freq: Status: Complete Protocol: Document 05/18/18 14:02 CAB (Rec: 05/18/18 14:34 CAB [id number]) Pre-Anesthesia Assessment Patient Information Reviewed Via Phone Assessment Assessment Completed With Patient Diagnostic Results BMP/CMP CBC EKG Primary Care Provider Jayme Arizmendi Medical Clearance Received Yes Seen Specialist in Last 12 Months Yes Specialist Seen Orthopedist Comment PCP clearance 05/03/18 scanned to record Primary Language Hebrew Manager Star Required No Height 160.02 cm Weight 73.936 kg Body Mass Index (BMI) 28.8 Hearing Ability Hard of Hearing Use of Hearing Aid Visual Assist Glasses Dentition Type Partial- Upper Barriers to Learning None Other Aids No Hx Anesthesia Reactions Yes: I don't come out really quickly. 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 No Does patient have SALAS/SOB No Hx Sleep Apnea No Currently Taking a Beta Allie No Can You Climb a Flight of Stairs Without Pt unsure SOB Hx Chest Pain No Hx SOB No Hx Syncope or Dizziness No Anti-Coagulant Therapy No Has a Head Of Cytogenetics No Cardiac Testing No Hx Pacemaker/ICD No Pacemaker Rep Required? No Cardiac Clearance Received Not Applicable Diet Type At Home Regular dysphagia No Bladder Pattern Incontinent, Stress Urgency Urinary Catheter Present No Hx Urinary Self Catheterization No Diabetes No HgbA1C 5.7 Date 04/07/18 Patient No Lactating No Hx Drug Resistant Organism No Presence of External or Internal Medical Yes: Left hip prosthesis Devices Have you traveled outside the [employer] [place] [place] in the last 30 days? Marital Status / Lives With children Prior Living Arrangements House Number of Floors (Floors) Two Floors Support System Child/Children Family Does the Patient Have Assistance After Yes Surgery Patient Discharge Plan Description Return Home Comment Pt not advised on length of stay per surgeon's office Feels Safe in Current Environment Yes Been Physically Hurt or Threatened By a No Person in Current Environment Do you have thoughts of harming yourself None or others? Are you currently considering suicide? No Do you have a plan to hurt yourself or No Plan others? Do You Have Any Spiritual Beliefs That No May Affect Your HC Choices? Do You Have Any Cultural Practices That No May Affect Your HC Choices? Spiritual Referral Religious clergy/Lay tank truck driver visit Comment Religious Who Can We Speak to About Patient's Care Family, friends Identifying Code for Release of Patient Declines to issue Information Health Care Proxy/Next of Kin Hanny (daughter) Health Care Proxy Emergency Contact Name Hanny (daughter) Emergency Contact Advance Directives? No: Information mailed to patient Requested Patient Bring Advanced Yes Directives DOS Power of Technology Engineer Yes Power of Technology Engineer Name Hanny (katlyn) Power of Technology Engineer PAC Instructions Do not shave/clip surgical site Durable medical equipment Medications to take/avoid Nasal antibiotic No ETOH/petroleum product on skin DOS NPO Post-op transportation Pre-surgical wash Sensory aids Sturdy shoes/comfortable clothes Do not bring valuables and remove jewelry
[2018-06-02 12:00] VITALS: BP 137/59; PULSE 65; RESP 16; TEMP 36.9; O2SAT 99
[2018-06-02 12:09] LABS: Hematocrit 31.8 % (36-46); Hemoglobin 11.2 g/dL (12.0-16.0)
--- NOTE | 2018-06-02 14:32 | PT.IPTN ---
Current Diagnoses Unilateral primary osteoarthritis, right hip (06/01/18) Surgery Performed Operation Date: 06/01/18 07:45 Actual Procedures p Total Hip Arthroplasty Posterior(Right) - Chelsea Head MD Physical Therapy Treatment Note M2 PT-IP Current Condition Start: 06/01/18 16:01 Freq: NEEDED Status: Active Protocol: Document 06/01/18 15:00 AB (Rec: 06/01/18 16:15 AB [id number]) Physical Therapy Current Condition Current Condition Evaluation Date 06/01/18 Treatment Diagnosis s/p R CANDY posterior approach; difficulty in walking Onset Date 06/01/18 Precautions Posterior Hip Precautions No Hip Flexion > 90 degrees No Hip Internal Rotation No Hip Adduction Weight Bearing Status Weight Bearing Status Weight Bear as Tolerated M3 PT-IP Subjective Start: 06/01/18 16:01 Freq: NEEDED Status: Active Protocol: Document 06/02/18 14:32 AB (Rec: 06/02/18 15:19 AB [id number]) Subjective Physical Therapy Visit Type Type Treatment Note Visit Start Time 14:32 Visit Stop Time 15:00 Total Visit Minutes 28 Number of BOSS MINER Visits 0 Physical Therapy Visit Comments Patient Comments pt agreeable to do PT. daughter present for caregiver training Therapy Pain Assessment Pain When Pain Assessed During Mobility Pain Present Pain Present Pain Reported Location Right Hip Intensity 4 Pain Management Techniques Apply Cold Timing of Activity with Medications M4 PT-IP Mobility and Gait Start: 06/01/18 16:01 Freq: NEEDED Status: Active Protocol: Document 06/02/18 14:32 AB (Rec: 06/02/18 15:19 AB [id number]) PT-Bed Mobility Assessment Supine to Sit Supine to Sit Standby Assistance PT-Transfer Assessment Sit to and From Stand Sit to and from Stand Minimal Assistance Moderate Assistance 1 Person Assistance Use of Upper Extremities Equipment Transfer Assistive Device Gait Belt Front Wheeled Walker Orthotic/Prosthetic Devices or Brace: No Transfers Transfer Destination Chair Transfer Technique Stand Step Pivot Transfer Ability Level of Assist Contact Guard Assistance Comments Mobility Comments caregiver training conducted. educated daughter on how to use safety belt and how to assist pt. pt completed sit < >stand x 5 reps requiring min to mod A and cues for techniques. pt's daughter was able to assist pt safely. Gait Assessment Gait Gait Assistance Required: Standby Assistance Contact Guard Assist Distance (Feet) 150 Able to Maintain Weight Bearing Status Yes During Gait Assistive Devices Assistive Device Gait Belt Front Wheeled Walker Orthotic/Prosthetic Devices or Brace: No Gait Deviations General Gait Pattern Antalgic Decreased Stride Length Decreased Feet Clearance Factors Limiting Gait Function Factors Limiting Gait Function Decreased Activity Tolerance Decreased Strength Difficulty Following Directions Limited Range of Motion Pain Poor Balance Poor Safety Awareness Stair Climbing Assessment Evaluation Level of Assist On Stairs Contact Guard Assistance 1 Person Assistance Devices Stair Climbing Assistive Devices Left Railing Right Railing Technique/Endurance Stair Climbing Direction Ascend and Descend Stair Climbing Technique Step to Step Number of Steps Climbed 2 Query Text: Stair Climbing Set # Repetitions (reps) 2 Comments Stair Climbing Comments pt's daughter was able to safely assist pt with stairs. M5 PT-IP Objective Assessments Start: 06/01/18 16:01 Freq: NEEDED Status: Active Protocol: Document 06/01/18 15:00 AB (Rec: 06/01/18 16:15 AB [id number]) Orientation Orientation/Cognition Level of Alertness Alert Orientation Name Age Place Situation Language Function Ability Hard of Hearing Safety Awareness Decreased Safety Awareness Memory Description Short Term Impaired Gross Range of Motion Lower Extremity ROM Assessment Right Impaired Impairments R knee flexor tightness: Strength Lower Extremity Strength Assessment Right Impaired Hip 3-/5 Knee 3+/5 Sensation Assessment Sensation Gross Sensation WNL Muscle Tone Muscle Tone WNL Yes M6 PT-IP Treatment Start: 06/01/18 16:01 Freq: NEEDED Status: Active Protocol: Document 06/02/18 14:32 AB (Rec: 06/02/18 15:19 AB [id number]) Physical Therapy Treatment Education Education Provided Precautions Safety M7 PT-IP Assessment and Plan Start: 06/01/18 16:01 Freq: NEEDED Status: Active Protocol: Document 06/02/18 14:32 AB (Rec: 06/02/18 15:19 AB [id number]) PT Summary Assessment and Plan Potential Rehabilitation Potential Good Summary Impairments Pain ROM Strength Balance Coordination Sensation Tone Cognition Bed Mobility Transfers Gait Activity Tolerance Progress Towards Goals Progressing Toward Goals Assessment Summary caregiver training conducted and pt's daughter was able to safely assist pt. pt plans to go home later today. Goals Bed Mobility Goal Independent Transfer Goal Standby Assistance Front Wheeled Walker Gait Goal Standby Assistance Front Wheel Walker Gait Distance 200 Other Goals up/down 5 steps with bilateral rails SBA Days to Meet Goals 5 Frequency of Treatment Frequency Of Treatment Twice a Day Treatment Plan Physical Therapy Treatment Plan Bed Mobility Training Transfer Training Gait Training Therapeutic Exercise Balance Retraining Post Op Education Discharge Planning Hot or Cold Pack Neuromuscular Re-ed Coordination Retraining Manual Therapy Recommendations To Nursing Amount of Assist Needed 1 Person Assist Discharge Recommendations PT Discharge Recommendations Home with Assistance Outpatient PT
[2018-06-02 15:45] VITALS: BP 130/88; PULSE 62; RESP 17; TEMP 37.2; O2SAT 95
--- NOTE | 2018-06-02 16:10 | PC.NURSE ---
1530 - Pt to be discharged. IV access d/c'd. Drain d/c'd. Drain d/c site covered with gauze and tegaderm. Pt tolerated well. Reviewed discharge instructions, hip precautions, answered questions r/t drsg, last dose times of medications. Pt to discharge home with daughter. D/c via wc.
== END 2018-06-02 15:55 | disposition home or self-care (01) | DRG 470 ==
PROVIDERS: Admitting Provider Orthopaedic Surgery; Family Provider Family Medicine; PCP Family Medicine; Visit Provider Orthopaedic Surgery
PROC: 0SR90JZ Replacement of Right Hip Joint with Synthetic Substitute, Open Approach (ICD-10-PCS; CPT 27130; principal; 2018-06-01 07:45)
DX: M16.11 Unilateral primary osteoarthritis, right hip (principal); I10 Essential (primary) hypertension; E78.5 Hyperlipidemia, unspecified; I89.0 Lymphedema, not elsewhere classified; Z87.891 Personal history of nicotine dependence
CPT/HCPCS: 73502; 85014; 85018; 93005; 97116; 97162; 97530; C1776; C9290; J0171; J0690; J1100; J1885; J2250; J2405; J2704; J3010; J3370; J3410

== ENCOUNTER 2018-06-06 06:21 | Emergency (ER) | payer MEDICARE, OTHER, SELFPAY ==
[2018-06-01 14:19] VITALS: BMI 27.1
--- NOTE | 2018-06-06 06:26 | ED.GENADULT ---
HPI - General Adult <Gabino Ward DO - Last Filed: 06/06/18 18:03> General Chief complaint: Extremity Problem,Nontraumatic Stated complaint: Recent rt hip surgery pain, hurts to stand Time Seen by Provider: 06/06/18 06:24 Source: patient Mode of arrival: wheelchair Limitations: no limitations History of Present Illness HPI narrative: 82-year-old female who 5 days ago when a right-sided posterior total hip arthroplasty. Was discharged the next day. Patient states she has been doing well. Did not fall. Went to bed last night without much pain. Woke up this morning with pain in the back of her right hip. Approximately 1 hour prior to arrival she took a oxycodone and acetaminophen. States the pain is radiating down her leg. Related Data Home Medications Medication Instructions Recorded Confirmed CA PANTOTHENATE/FOLIC ACID/VIT 1 tab PO QDAY #0 07/16/12 06/06/18 (MULTIVITAMIN) CALCIUM CARBONATE (#CALCIUM) 600 mg PO QDAY #0 07/16/12 06/06/18 VITAMIN D (Vitamin D3) 1,000 unit PO QDAY #0 07/16/12 06/06/18 levothyroxine [Synthroid] 0.05 mg PO QDAY #0 10/01/12 06/06/18 atorvastatin [Lipitor] 20 mg PO BEDTIME #0 12/24/15 06/06/18 losartan 50 mg PO BID #0 12/17/16 06/06/18 alum-mag hydroxide-simeth [Mag-Al 30 ml PO QIDP PRN 05/18/18 06/06/18 Plus] ibuprofen 400 mg PO BEDTIME 05/18/18 06/06/18 Previous Rx's Medication Instructions Recorded acetaminophen 975 mg PO TID #30 tab 06/02/18 aspirin 81 mg PO BID #60 tab 06/02/18 Allergies Allergy/AdvReac Type Severity Reaction Status Date / Time diclofenac [DICLOFENAC] AdvReac Intermediate NAUSEA/VOMI Verified 06/01/18 07:10 TING POTATO STARCH Allergy Severe Facial Uncoded 06/01/18 07:10 swelling OYSTER SHELL AdvReac Intermediate Vomiting Uncoded 06/01/18 07:10 Review of Systems <DO Fuad Duque Last Filed: 06/06/18 18:03> Constitutional Denies fever(s) Musculoskeletal Comments: Right hip pain Integumentary/Breasts Denies rash Neurologic Comments: Pain radiating down the right hip Hematologic/Lymphatic Denies easy bleeding and Denies easy bruising PFSH <DO Fuad Duque Last Filed: 06/06/18 18:03> Medical History Asthma (Acute) Breast cancer, right (Acute) Former smoker, stopped smoking many years ago (Acute) HLD (hyperlipidemia) (Acute) HTN (hypertension) (Acute) Hearing impaired (Acute) History of chemotherapy (Acute) Hypothyroidism (Acute) Impaired vision (Acute) LAFB (left anterior fascicular block) (Acute) PVD (peripheral vascular disease) (Acute) Spinal stenosis (Acute) Surgical History History of bilateral cataract extraction (Acute) History of prophylactic mastectomy of left breast (Acute) History of total left hip arthroplasty (Acute) Hx of appendectomy (Acute) Hx of microdiscectomy (Acute) Social History household members: children Smoking Status: Former smoker alcohol intake: current Social History household members: children Smoking Status: Former smoker alcohol intake: current Exam <DO Fuad Duque Last Filed: 06/06/18 18:03> Initial Vital Signs Initial Vital Signs: Vital Signs Temperature 98.6 F 06/06/18 06:30 Pulse Rate 87 06/06/18 06:30 Respiratory Rate 18 06/06/18 06:30 Blood Pressure 185/50 H 06/06/18 06:30 Pulse Oximetry 98 06/06/18 06:30 Const General: No comfortable (Uncomfortable) Orientation: alert and awake Resp Effort & Inspection: normal respiratory effort Cardio Pulses: dorsalis pedis present on the right Skin Other: Surgical bandage on top of right sided posterior surgical scar. No surrounding erythema. Neuro General: alert and awake Extrem Other: Patient with tenderness to palpation around the right hip. Unable to place much weight on her right lower extremity. Patient does have 1+ pitting edema in her upper leg/thigh area. Does have swelling around the knee. <Maxine Lemos DO - Last Filed: 06/06/18 10:36> Initial Vital Signs Initial Vital Signs: Vital Signs Temperature 98.6 F 06/06/18 06:30 Pulse Rate 87 06/06/18 06:30 Respiratory Rate 18 06/06/18 06:30 Blood Pressure 185/50 H 06/06/18 06:30 Pulse Oximetry 98 06/06/18 06:30 Course <DO Fuad Duque Last Filed: 06/06/18 18:03> Orders Ordered: Discontinued Medications Hydromorphone HCl (Dilaudid) 0.5 mg IM NOW ONE Stop: 06/06/18 06:32 Last Admin: 06/06/18 06:42 Dose: 0.5 mg Ondansetron HCl (Zofran Odt) 4 mg PO NOW ONE Stop: 06/06/18 06:40 Last Admin: 06/06/18 06:42 Dose: 4 mg Vital Signs - 8 hr 06/06/18 06:30 06/06/18 09:39 Temperature 98.6 F 98.1 F Pulse Rate 87 73 Respiratory Rate 18 16 Blood Pressure 185/50 H Blood Pressure [Left Arm] 136/57 L Pulse Oximetry 98 97 <Maxine Lemos DO - Last Filed: 06/06/18 10:36> Orders Ordered: Discontinued Medications Hydromorphone HCl (Dilaudid) 0.5 mg IM NOW ONE Stop: 06/06/18 06:32 Last Admin: 06/06/18 06:42 Dose: 0.5 mg Ondansetron HCl (Zofran Odt) 4 mg PO NOW ONE Stop: 06/06/18 06:40 Last Admin: 06/06/18 06:42 Dose: 4 mg Vital Signs - 8 hr 06/06/18 06:30 06/06/18 09:39 Temperature 98.6 F 98.1 F Pulse Rate 87 73 Respiratory Rate 18 16 Blood Pressure 185/50 H Blood Pressure [Left Arm] 136/57 L Pulse Oximetry 98 97 Medical Decision Making <DO Fuad Duque Last Filed: 06/06/18 18:03> Imaging Data Hip x-ray: Attestation: I personally reviewed and interpreted this imaging study as follows: My impression: No fractures, no dislocations, prostatic appears to be in place MDM Narrative Medical decision making narrative: Patient with a great improvement in her symptoms after the pain medication here in the emergency department. She has no fractures noted on the x-rays. She does have swelling in her right lower extremity which he states has occurred over the past 1-2 days. A DVT ultrasound was ordered. Care turned over to day provider at change of shift to follow up. <Maxine Lemos, DO - Last Filed: 06/06/18 10:36> Imaging Data Right hip x-ray: Radiologist's impression: PROCEDURE: XR HIP W PEL IF DONE RT 2V INDICATIONS: CANDY on 06/01 now with pain TECHNIQUE: AP pelvis and lateral view of the right hip acquired. COMPARISON: [facility], CR, XR HIP W PEL IF DONE RT 2V, 06/01/2018, 10:47. [facility], CR, XR HIP W PEL IF DONE RT 2V, 06/01/2018, 9:14. FINDINGS: Bones: Patient is status post bilateral hip arthroplasty, with hardware components in expected positions. The hip joint appears congruent. The visualized bony structures appear intact. Soft tissues: Overlying postoperative changes are noted. No suspicious soft tissue densities. IMPRESSION: Expected appearance of bilateral hip arthroplasty. No acute fracture. No osseous lesion. If clinical suspicion and/or symptoms persist, further assessment with repeat plainfilms, or advanced imaging (e.g., CT or bone scan) may be helpful for further assessment. Dictated by: Breezy Catalan M.D. on 06/06/2018 at 9:53 DVT: Radiologist's impression: PROCEDURE: US PERIPH VENOUS LOW EXTREM RT INDICATIONS: RIGHT LEG EDEMA 5 DAYS POST HIP REPLACEMENT TECHNIQUE: Real-time imaging, as well as color and pulse Doppler interrogation, were performed of the lower extremity deep veins from the inguinal ligament to the popliteal fossa. COMPARISON: None. FINDINGS: The common femoral, femoral and popliteal veins are normally compressible, and free of intraluminal thrombus. Color and pulse Doppler demonstrate normal phasic intraluminal flow. There is normal augmentation response to distal compression maneuver. IMPRESSION: No evidence of DVT. Dictated by: Breezy Catalan M.D. on 06/06/2018 at 8:34 MDM Narrative Medical decision making narrative: I received sign-out from gardening supervisor provider. I have done independent exam. Patient myself. She is overall alert no longer in pain. She does have some significant swelling of that right knee but no calf tenderness or swelling. Wound itself does not look infected she has not had any fever. A DVT study is negative x-ray is negative. She is ambulatory with her own walker to the restroom with minimal assistance. Overall feeling much better ready and able to go home. She has an appointment with orthopedics tomorrow. Discharge Plan Departure Patient Disposition: Home Clinical Impression: Acute hip pain Qualifiers: Laterality: right Qualified Code(s): M25.551 - Pain in right hip Discharge Date/Time: 06/06/18 09:52 Interventions: ED Discharge Assessment Last Done: 06/06/18 09:48 Instructions: DI for Hip Replacement Activity Restrictions/Additional Instructions: *You have been diagnosed with right hip pain *What to do: likely muscle spasm from recent surgery. DVT negative x-ray negative *Continue to take medications as directed *Follow up with your primary care provider in 2-3 days follow-up with Orthopedics tomorrow as previously scheduled *Return to ER if you should have increasing pain, fever, worsening swelling, inability to put weight on leg or any new, worsening or concerning symptoms Prescriptions: No Action CA PANTOTHENATE/FOLIC ACID/VIT (MULTIVITAMIN) 1 tab PO QDAY Qty: 0 RF: 0 CALCIUM CARBONATE (#CALCIUM) 600 mg PO QDAY Qty: 0 RF: 0 VITAMIN D (Vitamin D3) 1,000 unit PO QDAY Qty: 0 RF: 0 levothyroxine [Synthroid] 50 MCG tablet 0.05 mg PO QDAY Qty: 0 RF: 0 atorvastatin [Lipitor] 20 MG tablet 20 mg PO BEDTIME Qty: 0 RF: 0 losartan 50 MG tablet 50 mg PO BID Qty: 0 RF: 0 alum-mag hydroxide-simeth [Mag-Al Plus] 30 ML suspension 30 ml PO QIDP PRN (Reason: Diarrhea) RF: 0 ibuprofen 200 mg Capsule 400 mg PO BEDTIME RF: 0 acetaminophen 325 mg Tablet 975 mg PO TID Qty: 30 RF: 0 aspirin 81 mg Tablet,Delayed Release (Dr/Ec) 81 mg PO BID Qty: 60 RF: 0 Referrals: Jayme Arizmendi MD [Primary Care Provider] - Chelsea Head MD [Physician] -
[2018-06-06 06:30] VITALS: BP 185/50; PULSE 87; RESP 18; TEMP 37; O2SAT 98
[2018-06-06] MEDS: HYDROMORPHONE 1 MG INJ 0.5 MG IM (06:42)
[2018-06-06] MEDS: ONDANSETRON 4 MG ODT PO (06:42)
--- NOTE | 2018-06-06 07:17 | DI.US.S_ITS ---
PROCEDURE: US PERIPH VENOUS LOW EXTREM RT INDICATIONS: RIGHT LEG EDEMA 5 DAYS POST HIP REPLACEMENT TECHNIQUE: Real-time imaging, as well as color and pulse Doppler interrogation, were performed of the lower extremity deep veins from the inguinal ligament to the popliteal fossa. COMPARISON: None. FINDINGS: The common femoral, femoral and popliteal veins are normally compressible, and free of intraluminal thrombus. Color and pulse Doppler demonstrate normal phasic intraluminal flow. There is normal augmentation response to distal compression maneuver. IMPRESSION: No evidence of DVT. Dictated by: Breezy Catalan M.D. on 06/06/2018 at 8:34 Approved by: Breezy Catalan M.D. on 06/06/2018 at 8:35
[2018-06-06 09:39] VITALS: BP 136/57; PULSE 73; RESP 16; TEMP 36.7; O2SAT 97
== END 2018-06-06 09:52 | disposition home or self-care (01) ==
PROVIDERS: Emergency Provider Emergency Medicine; PCP Family Medicine
DX: M25.551 Pain in right hip (principal); Z98.1 Arthrodesis status
CPT/HCPCS: 73502; 93971; 96372; 99282; 99283; J1170

== ENCOUNTER → 2018-06-22 07:30 | Outpatient (CLI) | payer MEDICARE, OTHER, SELFPAY ==
[2018-06-01 14:19] VITALS: BMI 27.1
--- NOTE | 2018-06-22 | DI.US.S_ITS ---
PROCEDURE: US PERIPH VENOUS LOW EXTREM RT INDICATIONS: RIGHT LEG SWELLING TECHNIQUE: Real-time imaging, as well as color and pulse Doppler interrogation, were performed of the lower extremity deep veins from the inguinal ligament to the popliteal fossa. COMPARISON: None. FINDINGS: The common femoral, femoral and popliteal veins are normally compressible, and free of intraluminal thrombus. Color and pulse Doppler demonstrate normal phasic intraluminal flow. There is normal augmentation response to distal compression maneuver. IMPRESSION: No deep venous thrombosis identified within the right lower extremity. Dictated by: Fredrick ASHBY Interpreted: Rena Aldridge MD on 06/22/2018 at 10:23 Approved by: Rena Aldridge M.D. on 06/22/2018 at 11:03
== END ==
PROVIDERS: PCP Family Medicine; Visit Provider Family Medicine
DX: M79.89 Other specified soft tissue disorders (principal); R60.9 Edema, unspecified; I79.8 Other disorders of arteries, arterioles and capillaries in diseases classified elsewhere
CPT/HCPCS: 93971

== ENCOUNTER → 2021-11-21 13:54 | Outpatient (CLI) | payer MEDICARE, OTHER, SELFPAY ==
[2018-06-01 14:19] VITALS: BMI 27.1
--- NOTE | 2021-11-21 | DI.RAD.S_ITS ---
PROCEDURE: XR CHEST 2V INDICATIONS: COUGH TECHNIQUE: 2 views of the chest were acquired. COMPARISON: [facility], , CHEST 2 VIEW, 08/29/2013, 13:16. FINDINGS: Surgical changes and devices: Multiple clips overlying the chest. Lungs and pleura: Lungs are clear. No pleural effusions or pneumothorax. Mediastinum: Mediastinal contours are normal. Heart size is normal. Bones and chest wall: No suspicious bony abnormalities. Soft tissues appear unremarkable. IMPRESSION: No acute cardiopulmonary abnormality. Dictated by: Rad Crowell M.D. on 11/21/2021 at 15:40 Approved by: Rad Crowell M.D. on 11/21/2021 at 15:41
== END ==
PROVIDERS: PCP Family Medicine; Referring Provider Family Medicine; Visit Provider Family Medicine
DX: R05.9 Cough, unspecified (principal)
CPT/HCPCS: 71046

== ENCOUNTER 2021-11-29 11:28 | Observation (INO) | payer MEDICARE, OTHER, SELFPAY ==
[2018-06-01 14:19] VITALS: BMI 27.1
[2021-11-29] VITALS (16 sets, daily range): BP systolic 137–186; BP diastolic 69–88; PULSE 56–95; RESP 14–28; TEMP 36.1–36.6; O2SAT 92–98; BMI 23.1
--- NOTE | 2021-11-29 11:47 | DI.RAD.S_ITS ---
PROCEDURE: XR CHEST 2V INDICATIONS: shortness of breath TECHNIQUE: 2 views of the chest were acquired. COMPARISON: [facility], , XR CHEST 2V, 11/21/2021, 14:04. FINDINGS: Surgical changes and devices: None. Lungs and pleura: Lungs are clear. No pleural effusions or pneumothorax. Mediastinum: Mediastinal contours are normal. Heart size is normal. Bones and chest wall: No suspicious bony abnormalities. Soft tissues appear unremarkable. IMPRESSION: No acute cardiopulmonary findings. Dictated by: Holli Mahoney M.D. on 11/29/2021 at 12:51 Approved by: Holli Mahoney M.D. on 11/29/2021 at 12:51
[2021-11-29 12:56] LABS: Add Manual Diff / Slide Review NO; Basophils Absolute Auto 100 /uL (0-100); Basophils Percent Auto 0.8 % (0-2); Eosinophils Absolute Auto 200 /uL (0-450); Eosinophils Percent Auto 2.4 % (2-4); Hemoglobin 13.6 g/dL (12.0-16.0); Lymphocytes Absolute Auto 1200 /uL (1100-4500); Lymphocytes Percent Auto 14.9 % (25-40); Mean Corpuscular HGB Conc 33.2 % (30-36); Mean Corpuscular Hemoglobin 29.3 PG (26-34); Mean Corpuscular Volume 88.1 fL (80-100); Monocytes Absolute Auto 500 /uL (0-900); Monocytes Percent Auto 6.5 % (3-14); Neutrophils Absolute Auto 6000 /uL (1500-7000); Neutrophils Percent Auto 75.4 % (50-75); Platelet Count 197 X10^3/uL (150-400); Red Blood Cell Count 4.65 X10^6/uL (4.0-5.2); Red Cell Distribution Width 14.1 % (11.6-14.8); White Blood Cell Count 7.9 X10^3/uL (4.5-11.0)
[2021-11-29 13:08] LABS: Alanine Aminotransferase 127 IU/L (<35); Albumin 3.7 g/dL (3.5-5.0); Albumin Globulin Ratio 1.2 (1.0-2.8); Alkaline Phosphatase 101 U/L (38-126); Aspartate Aminotransferase 120 IU/L (14-36); BUN Creatinine Ratio 16.7 (6-22); Blood Urea Nitrogen 13 mg/dL (7-17); Calcium 8.9 mg/dL (8.4-10.2); Carbon Dioxide 28 mmol/L (22-32); Chloride 105 mmol/L (98-107); Creatine Kinase 44 U/L (30-135); Estimated Glomerular Filt Rate > 60 mL/min (>60); Globulin 3.1 g/dL (1.7-4.1); Glucose 106 mg/dL (80-110); HEMOLYSIS 24 (0-50); Lactate (Lactic Acid) 1.5 mmol/L (0.7-2.1); Potassium 4.7 mmol/L (3.4-5.1); Sodium 141 mmol/L (137-145); Total Protein 6.8 g/dL (6.3-8.2)
[2021-11-29 13:20] LABS: NT-proBNP (BNP-Adult 18+) 112 pg/mL (<450); Troponin I < 0.012 ng/mL (0.01-0.034)
--- NOTE | 2021-11-29 14:04 | ED_ITS ---
HPI - SOB/Dyspnea General Chief Complaint: Upper Respiratory Symptoms Stated Complaint: sob Time Seen by Provider: 11/29/21 12:01 Source: patient Mode of arrival: Ambulatory Limitations: no limitations History of Present Illness HPI Narrative: Patient is a 86-year-old female history of hyperlipidemia hypertension p resenting today with cough and shortness of breath. She states she has had a cough ongoing for a couple of week. However today when she got up and walked to the living room she was extremely short of breath. She denies any peripheral swelling orthopnea or chest pain. She has not really had any fever or chills. But her cough does sound quite wet. She is not a smoker. He denies any palpitations. Related Data Home Medications Medication Instructions Recorded Confirmed VITAMIN D (Vitamin D3) 1,000 unit PO QDAY ##0 07/16/12 11/29/21 levothyroxine 50 mcg tablet 0.05 mg PO QDAY ##0 10/01/12 11/29/21 (Synthroid) atorvastatin 20 mg tablet (Lipitor) 20 mg PO BEDTIME ##0 12/24/15 11/29/21 losartan 50 mg tablet 50 mg PO BID ##0 12/17/16 11/29/21 Allergies Allergy/AdvReac Type Severity Reaction Status Date / Time diclofenac [DICLOFENAC] AdvReac Intermediate NAUSEA/VOMI Verified 06/01/18 07:10 TING POTATO STARCH Allergy Severe Facial Uncoded 06/01/18 07:10 swelling OYSTER SHELL AdvReac Intermediate Vomiting Uncoded 06/01/18 07:10 Review of Systems Review of Systems Narrative: GENERAL: Denies chills, fatigue, malaise, fever, sweats, travel HEENT: Denies sinus pain, ear pain, sore throat, difficulty swallowing, neck pain RESPIRATORY: See HPI CARDIOVASCULAR: Denies chest pain, palpitations, orthopnea, edema GASTROINTESTINAL: Denies nausea, vomiting, abdominal pain, diarrhea, constipation, melena. : Denies dysuria, frequency, incontinence, hematuria, urinary retention, flank pain. MUSCULOSKELETAL: Denies weakness, joint pain, or bony pain SKIN: No rash, no erythema, no pruritus NEUROLOGIC: Denies weakness, dizziness, headache, numbness, change in speech, c onfusion PSYCHIATRIC: No concerning psychosocial issues. 12 point review of systems is negative except for those stated above and HPI Patient History Medical History (Updated 11/29/21 @ 16:55 by Maxine Lemos DO) Asthma Breast cancer, right Former smoker, stopped smoking many years ago Hearing impaired History of chemotherapy HLD (hyperlipidemia) HTN (hypertension) Hypothyroidism Impaired vision LAFB (left anterior fascicular block) PVD (peripheral vascular disease) Spinal stenosis Surgical History History of bilateral cataract extraction History of prophylactic mastectomy of left breast History of total left hip arthroplasty Hx of appendectomy Hx of microdiscectomy Social History household members: children Smoking Status: Former smoker alcohol intake: current Smoking Status: Former smoker alcohol intake frequency: holidays/special occasions only Substance Use Type: does not use Exam Initial Vital Signs Initial Vital Signs: Vital Signs Temperature 97.0 F L 11/29/21 11:37 Pulse Rate 93 H 11/29/21 11:37 Respiratory Rate 28 H 11/29/21 11:37 Blood Pressure 171/79 H 11/29/21 11:37 Pulse Oximetry 94 11/29/21 11:37 Oxygen Delivery Method 11/29/21 11:37 GENERAL: Alert pleasant well-appearing 86-year-old and in no acute distress. HEENT: Head atraumatic,EOMI, pupils reactive, face symmetric, moist mucous membranes CARDIOVASCULAR: Regular rate and rhythm without murmurs, rubs or gallops. RESPIRATORY: Slightly decreased no respiratory distress no tachypnea mild rales at bases ABDOMEN: Soft, nontender. Normoactive bowel sounds all 4 quadrants. No guarding or rebound. EXTREMITIES: Normal range of motion, no clubbing or edema. Neurovascularly intact NEUROLOGICAL: Alert and oriented x4.Normal gait and speech. Cranial nerves II through XII grossly intact. SKIN: Warm, dry, no laceration, no petechiae, no rashes or lesions. Course Orders Ordered: ED Orders 11/29/21 11:47 XR chest 2V Stat EKG-12 Lead Stat RT Consult Eval and Treat Now 11/29/21 12:49 BNP [NT-proBNP (BNP-Adult 18+)] Stat Complete Blood Count AUTO DIFF Stat Comprehensive Metabolic Panel Stat Lactate (Lactic Acid) Stat Troponin & CK Cardiac Panel Stat 11/29/21 14:15 CT angio chest PE protocol Stat 11/29/21 14:22 Covid-19 + FLU A/B + RSV - PCR Stat Discontinued Medications Albuterol (Albuterol 2.5 Mg/3 Ml Neb (Adult)) 2.5 mg INH NOW ONE Stop: 11/29/21 14:16 Last Admin: 11/29/21 14:39 Dose: 2.5 mg Documented By: MARIANO Dexamethasone (Dexamethasone 10 Mg/Ml Vial) 6 mg IV NOW ONE Stop: 11/29/21 16:54 Last Admin: 11/29/21 17:12 Dose: 6 mg Documented By: UNA Vital Signs Vital signs: Vital Signs - 8 hr 11/29/21 11:37 11/29/21 14:39 11/29/21 11:52 Temperature 97.0 F L Pulse Rate 93 H 64 75 Respiratory Rate 28 H 18 Blood Pressure 171/79 H Pulse Oximetry 94 96 96 Oxygen Delivery Method Room Air Room Air 11/29/21 11:53 11/29/21 11:53 11/29/21 12:00 Temperature Pulse Rate 87 80 Respiratory Rate 18 24 Blood Pressure 170/84 H Pulse Oximetry 96 94 Oxygen Delivery Method 11/29/21 12:38 11/29/21 13:00 11/29/21 13:30 Temperature Pulse Rate 75 60 65 Respiratory Rate 14 18 Blood Pressure Pulse Oximetry 93 92 95 Oxygen Delivery Method 11/29/21 14:00 11/29/21 14:33 11/29/21 14:34 Temperature Pulse Rate 56 L 92 H 85 Respiratory Rate 16 24 18 Blood Pressure Pulse Oximetry 95 95 97 Oxygen Delivery Method 11/29/21 14:34 11/29/21 14:46 11/29/21 14:46 Temperature Pulse Rate 74 Respiratory Rate 23 Blood Pressure 186/88 H 173/76 H Pulse Oximetry 94 Oxygen Delivery Method 11/29/21 15:11 11/29/21 15:30 Temperature Pulse Rate 87 67 Respiratory Rate 23 Blood Pressure Pulse Oximetry 98 96 Oxygen Delivery Method MDM - SOB/Dyspnea Lab Data Result diagrams: 11/29/21 12:49 11/29/21 12:49 Labs: Lab Results 11/29/21 11/29/21 11/29/21 Range/Units 12:49 12:49 12:49 WBC 7.9 (4.5-11.0) X10^3/uL RBC 4.65 (4.0-5.2) X10^6/uL Hgb 13.6 (12.0-16.0) g/dL Hct 41.0 (36-46) % MCV 88.1 (80-100) fL MCH 29.3 (26-34) PG MCHC 33.2 (30-36) % RDW 14.1 (11.6-14.8) % Plt Count 197 (150-400) X10^3/uL Neut % (Auto) 75.4 H (50-75) % Lymph % (Auto) 14.9 L (25-40) % [place] % (Auto) 6.5 (3-14) % Eos % (Auto) 2.4 (2-4) % Baso % (Auto) 0.8 (0-2) % Neut # (Auto) 6000 (0935-9127) /uL Lymph # (Auto) 1200 (3081-7285) /uL [place] # (Auto) 500 (0-900) /uL Eos # (Auto) 200 (0-450) /uL Baso # (Auto) 100 (0-100) /uL Sodium 141 (137-145) mmol/L Potassium 4.7 (3.4-5.1) mmol/L Chloride 105 (98-107) mmol/L Carbon Dioxide 28 (22-32) mmol/L BUN 13 (7-17) mg/dL Creatinine 0.78 (0.52-1.04) mg/dL Estimated GFR > 60 (>60) mL/min BUN/Creatinine Ratio 16.7 (6-22) Glucose 106 (80-110) mg/dL Lactate 1.5 (0.7-2.1) mmol/L Calcium 8.9 (8.4-10.2) mg/dL Total Bilirubin 1.0 (0.2-1.3) mg/dL AST 120 H (14-36) IU/L ALT 127 H (<35) IU/L Alkaline Phosphatase 101 (38-126) U/L Total Creatine Kinase (30-135) U/L CK-MB (CK-2) CK-MB (CK-2) Rel Index Troponin I (0.01-0.034) ng/mL NT-Pro-B Natriuret Pep (<450) pg/mL Total Protein 6.8 (6.3-8.2) g/dL Albumin 3.7 (3.5-5.0) g/dL Globulin 3.1 (1.7-4.1) g/dL Albumin/Globulin Ratio 1.2 (1.0-2.8) SARS-CoV-2 (PCR) (Negative) Influenza A (RT-PCR) (NEGATIVE) Influenza B (RT-PCR) (NEGATIVE) RSV (PCR) (Negative) 11/29/21 11/29/21 Range/Units 12:49 14:22 WBC (4.5-11.0) X10^3/uL RBC (4.0-5.2) X10^6/uL Hgb (12.0-16.0) g/dL Hct (36-46) % MCV (80-100) fL MCH (26-34) PG MCHC (30-36) % RDW (11.6-14.8) % Plt Count (150-400) X10^3/uL Neut % (Auto) (50-75) % Lymph % (Auto) (25-40) % [place] % (Auto) (3-14) % Eos % (Auto) (2-4) % Baso % (Auto) (0-2) % Neut # (Auto) (6815-0317) /uL Lymph # (Auto) (3350-0728) /uL [place] # (Auto) (0-900) /uL Eos # (Auto) (0-450) /uL Baso # (Auto) (0-100) /uL Sodium (137-145) mmol/L Potassium (3.4-5.1) mmol/L Chloride (98-107) mmol/L Carbon Dioxide (22-32) mmol/L BUN (7-17) mg/dL Creatinine (0.52-1.04) mg/dL Estimated GFR (>60) mL/min BUN/Creatinine Ratio (6-22) Glucose (80-110) mg/dL Lactate (0.7-2.1) mmol/L Calcium (8.4-10.2) mg/dL Total Bilirubin (0.2-1.3) mg/dL AST (14-36) IU/L ALT (<35) IU/L Alkaline Phosphatase (38-126) U/L Total Creatine Kinase 44 (30-135) U/L CK-MB (CK-2) TNP CK-MB (CK-2) Rel Index TNP Troponin I < 0.012 (0.01-0.034) ng/mL NT-Pro-B Natriuret Pep 112 (<450) pg/mL Total Protein (6.3-8.2) g/dL Albumin (3.5-5.0) g/dL Globulin (1.7-4.1) g/dL Albumin/Globulin Ratio (1.0-2.8) SARS-CoV-2 (PCR) Positive H (Negative) Influenza A (RT-PCR) Flu a negative (NEGATIVE) Influenza B (RT-PCR) Flu b negative (NEGATIVE) RSV (PCR) Negative (Negative) Imaging Data Chest x-ray: Radiologist's Impression: XRay Report Signed Patient: Kenisha Glaser MR#: [id number] : 1935 Acct:[id number] Age/Sex: 86 / F Date of Service: 11/29/21 Loc: ED Accession Number: [id number] ?? Procedure: XR chest 2V Ordering Provider: Maxine Lemos D.O. PROCEDURE:? XR CHEST 2V ? INDICATIONS:? shortness of breath ? TECHNIQUE:? 2 views of the chest were acquired.? ? COMPARISON:? [facility], , XR CHEST 2V, 11/21/2021, 14:04. ? FINDINGS:? ? Surgical changes and devices:? None.? ? Lungs and pleura:? Lungs are clear.? No pleural effusions or pneumothorax.? ? Mediastinum:? Mediastinal contours are normal.? Heart size is normal.? ? Bones and chest wall:? No suspicious bony abnormalities.? Soft tissues appear unremarkable.? ? IMPRESSION:? No acute cardiopulmonary findings. ? ? Dictated by: Holli Mahoney M.D. on 11/29/2021 at 12:51 ? ? CT scan - chest: Radiologist's Impression: CT Scan Report Signed Patient: Kenisha Glaser MR#: [id number] : 1935 Acct:[id number] Age/Sex: 86 / F Date of Service: 11/29/21 Loc: ED Accession Number: [id number] ?? Procedure: CT angio chest PE protocol Ordering Provider: Maxine Lemos D.O. PROCEDURE:? CT ANGIO CHEST PE PROTOCOL ? INDICATIONS:? hypoxia ? TECHNIQUE:? After the administration of intravenous contrast, 2 mm thick sections acquired from the pulmonary apices to the posterior costophrenic angles.? 3-dimensional maximum intensity projection (MIP) coronal and sagittal reformats were then acquired through the thorax.? For radiation dose reduction, the following was used:? automated exposure contr ol, adjustment of mA and/or kV according to patient size.? ? COMPARISON:? None. ? FINDINGS:? Image quality:? Excellent.? ? Pulmonary arteries:? Pulmonary arteries are normal in size, and demonstrate no intraluminal filling defects to suggest central pulmonary embolism.? ? Lungs and pleura:? Lungs are clear.? No pleural effusions or pneumothorax.? Central and peripheral airways are patent.? Moderate pulmonary emphysematous changes ? Mediastinum:? Heart size is normal, without pericardial effusion.? No mediastinal or hilar adenopathy.? Thoracic aorta is normal in caliber and enhancement.? Small hiatal hernia noted ? Bones and chest wall:? No suspicious bony lesions.? Ribs and thoracic spine ap pear intact throughout.? Thyroid gland unremarkable.? No axillary or supraclavicular adenopathy.? Bilateral glenohumeral osteoarthritis ? Abdomen:? Visualized upper abdominal solid organs appear normal in the early arterial phase of enhancement.? Cholelithiasis without CT evidence acute cholecystitis. ? IMPRESSION:? ? ? No evidence of pulmonary embolism, aortic dissection or aneurysm. ? Moderate pulmonary emphysema without focal mass lesion, pneumothorax or pleural effusion. ? Bilateral lower lobe smooth bronchial wall thickening may reflect bronchitis? ? ? Approved by: Ravindra Argueta M.D. on 11/29/2021 at 13:56? ECG Data Interpretation: Normal sinus rhythm rate 78 DC interval 194 QRS [address] changes or T-wave inversions MDM Narrative Medical decision making narrative: Patient has had an ongoing cough for at least a month however became hypoxic today. She actually does desat when she goes to the bathroom a. She is found to be COVID positive. While resting she is not requiring oxygen however with any sort of movement she becomes extremely dyspneic. She overall appears well. BMP is negative not congestive heart failure. A CT angio was done which did not show any sort of pulmonary embolism but did show some emphysematous changes. At this time since she is not requiring oxygen all of the time no indication for remdesivir dexamethasone, but she does need to stay in the hospital to be monitor Dr. Nunez accepts Discharge Plan Departure Patient Disposition: Admitted As Inpatient Clinical Impression: COVID-19 Admit Date/Time: 11/29/21 16:54 Admit Provider: Nurys Maria
--- NOTE | 2021-11-29 14:15 | DI.CT.S_ITS ---
PROCEDURE: CT ANGIO CHEST PE PROTOCOL INDICATIONS: hypoxia TECHNIQUE: After the administration of intravenous contrast, 2 mm thick sections acquired from the pulmonary apices to the posterior costophrenic angles. 3-dimensional maximum intensity projection (MIP) coronal and sagittal reformats were then acquired through the thorax. For radiation dose reduction, the following was used: automated exposure control, adjustment of mA and/or kV according to patient size. COMPARISON: None. FINDINGS: Image quality: Excellent. Pulmonary arteries: Pulmonary arteries are normal in size, and demonstrate no intraluminal filling defects to suggest central pulmonary embolism. Lungs and pleura: Lungs are clear. No pleural effusions or pneumothorax. Central and peripheral airways are patent. Moderate pulmonary emphysematous changes Mediastinum: Heart size is normal, without pericardial effusion. No mediastinal or hilar adenopathy. Thoracic aorta is normal in caliber and enhancement. Small hiatal hernia noted Bones and chest wall: No suspicious bony lesions. Ribs and thoracic spine appear intact throughout. Thyroid gland unremarkable. No axillary or supraclavicular adenopathy. Bilateral glenohumeral osteoarthritis Abdomen: Visualized upper abdominal solid organs appear normal in the early arterial phase of enhancement. Cholelithiasis without CT evidence acute cholecystitis. IMPRESSION: No evidence of pulmonary embolism, aortic dissection or aneurysm. Moderate pulmonary emphysema without focal mass lesion, pneumothorax or pleural effusion. Bilateral lower lobe smooth bronchial wall thickening may reflect bronchitis Approved by: Ravindra Argueta M.D. on 11/29/2021 at 13:56
[2021-11-29] MEDS: ALBUTEROL 2.5 MG/3 ML NEB (ADULT) INH (14:39)
[2021-11-29 15:16] LABS: Influenza A - CEPHEID Flu A NEGATIVE (NEGATIVE); Influenza B - CEPHEID Flu B NEGATIVE (NEGATIVE); Respiratory Syncytial Virus Negative (Negative)
[2021-11-29 15:19] LABS: COVID-19 CEPHEID PCR (VTM/NP) POSITIVE (Negative)
--- NOTE | 2021-11-29 15:35 | PC.NURSE ---
ambulatory pulse ox between 79-86% on room air; at rest pt returns to 94-96% on RA. sob with extertion, and tachypniec
[2021-11-29] MEDS: DEXAMETHASONE 10 MG/ML VIAL 6 MG IV (17:12)
[2021-11-29] MEDS: REMDESIVIR 200 MG in SODIUM CHLORIDE 0.9% 210 ML 250 MG IV (21:31)
[2021-11-29] MEDS: LOSARTAN 50 MG TABLET PO (21:32)
[2021-11-29] MEDS: LEVOTHYROXINE 50 MCG TABLET PO (21:33)
--- NOTE | 2021-11-29 21:50 | PM.HP.1 ---
History of Present Illness History of Present Illness Date Patient Seen: 11/29/21 Time Patient Seen: 22:00 Chief complaint: sob Narrative: Ms. Glaser is an 86W with PMH HTN, hypothyroid who presents with coughing and shortness of breath. She stated she has had a cough for nearly two weeks. For the majority of this time she had no significant improvement or worsening. However today she noted she was very short of breath. She could not walk more than 10-15 feet before becoming very short of breath. She had no fevers/chills, no chest pain. She has no changes in appetite, no nausea, vomiting, diarrhea. In the ED vitals notable for afebrile, respiratory rate in the high 20s, desat down to the 80s on room air. Labs notable for WBC 7.9, hgb 13.6. creatinine 0.78. AST/ALT 120/127. COVID positive, flu negative. Chest xray with no acute findings. CT read as moderate pulmonary emphysema and lower lobe smooth bronchial wall thickening. She was ordered for steroid and admitted for further treatment. Family history: asked and patient denied any medical issues with parents Patient History Medical History Asthma Breast cancer, right Former smoker, stopped smoking many years ago Hearing impaired History of chemotherapy HLD (hyperlipidemia) HTN (hypertension) Hypothyroidism Impaired vision LAFB (left anterior fascicular block) PVD (peripheral vascular disease) Spinal stenosis Surgical History History of bilateral cataract extraction History of prophylactic mastectomy of left breast History of total left hip arthroplasty Hx of appendectomy Hx of microdiscectomy Family & Social History Social History: household members children Prior Living Arrangements House Safety & Behavioral: Feels Safe in Current Yes Environment Been Physically Hurt or No Threatened By a Person Tobacco & Substance use: Tobacco type cigarettes Smoking Status Former smoker alcohol intake current alcohol intake frequency holiday/special occasion Substance Use Type does not use Meds Home Medications and Allergies Home Medications Medication Instructions Recorded Confirmed Type VITAMIN D (Vitamin D3) 1,000 unit PO QDAY ##0 07/16/12 11/29/21 History levothyroxine 50 mcg tablet 0.05 mg PO QDAY ##0 10/01/12 11/29/21 History (Synthroid) atorvastatin 20 mg tablet (Lipitor) 20 mg PO BEDTIME ##0 12/24/15 11/29/21 History losartan 50 mg tablet 50 mg PO BID ##0 12/17/16 11/29/21 History Allergies Allergy/AdvReac Type Severity Reaction Status Date / Time diclofenac [DICLOFENAC] AdvReac Intermediate NAUSEA/VOMI Verified 06/01/18 07:10 TING POTATO STARCH Allergy Severe Facial Uncoded 06/01/18 07:10 swelling OYSTER SHELL AdvReac Intermediate Vomiting Uncoded 06/01/18 07:10 Review of Systems Review of Systems Narrative: 14 systems performend and negative aside from what is noted in HPI Exam Vital Signs (past 8 hours): - 11/29/21 21:32 11/30/21 00:16 Temperature 97.7 F Pulse Rate 95 H 72 Respiratory Rate 16 Blood Pressure 137/69 155/75 H Pulse Oximetry 94 Oxygen Delivery Method Room Air Narrative Exam Narrative: GEN: respiratory distress, coughing HEENT: moist mucous membranes, PERRL NECK: trachea midline, no JVD PULM: decreased breath sounds bilaterally, unable to speak full sentences due to shortnes of breath, increased work of breathing CV: regular rate and rhythm, no murmus ABD: soft, nontender, nondistended, no organomegaly EXT: warm and well perfused with no edema NEURO: awake, alert, oriented, no focal deficits Objective Labs Result Diagrams: 11/29/21 12:49 11/29/21 12:49 Labs: Laboratory Results - last 24 hr 11/29/21 11/29/21 11/29/21 12:49 12:49 12:49 WBC 7.9 RBC 4.65 Hgb 13.6 Hct 41.0 MCV 88.1 MCH 29.3 MCHC 33.2 RDW 14.1 Plt Count 197 Neut % (Auto) 75.4 H Lymph % (Auto) 14.9 L [place] % (Auto) 6.5 Eos % (Auto) 2.4 Baso % (Auto) 0.8 Neut # (Auto) 6000 Lymph # (Auto) 1200 [place] # (Auto) 500 Eos # (Auto) 200 Baso # (Auto) 100 Sodium 141 Potassium 4.7 Chloride 105 Carbon Dioxide 28 BUN 13 Creatinine 0.78 Estimated GFR > 60 BUN/Creatinine Ratio 16.7 Glucose 106 Lactate 1.5 Calcium 8.9 Total Bilirubin 1.0 AST 120 H ALT 127 H Alkaline Phosphatase 101 Total Creatine Kinase CK-MB (CK-2) CK-MB (CK-2) Rel Index Troponin I NT-Pro-B Natriuret Pep Total Protein 6.8 Albumin 3.7 Globulin 3.1 Albumin/Globulin Ratio 1.2 SARS-CoV-2 (PCR) Influenza A (RT-PCR) Influenza B (RT-PCR) RSV (PCR) 11/29/21 11/29/21 12:49 14:22 WBC RBC Hgb Hct MCV MCH MCHC RDW Plt Count Neut % (Auto) Lymph % (Auto) [place] % (Auto) Eos % (Auto) Baso % (Auto) Neut # (Auto) Lymph # (Auto) [place] # (Auto) Eos # (Auto) Baso # (Auto) Sodium Potassium Chloride Carbon Dioxide BUN Creatinine Estimated GFR BUN/Creatinine Ratio Glucose Lactate Calcium Total Bilirubin AST ALT Alkaline Phosphatase Total Creatine Kinase 44 CK-MB (CK-2) TNP CK-MB (CK-2) Rel Index TNP Troponin I < 0.012 NT-Pro-B Natriuret Pep 112 Total Protein Albumin Globulin Albumin/Globulin Ratio SARS-CoV-2 (PCR) Positive H Influenza A (RT-PCR) Flu a negative Influenza B (RT-PCR) Flu b negative RSV (PCR) Negative Assessment & Plan Assessment & Plan narrative: 1. Acute hypoxemic respiratory failure from COVID pneumonia -patient found to be COVID positive, with sats documented down to 80s -start remdesivir and dexamethasone -supplemental o2 for goal spo2>90% -prn nebs for shortness of breath 2. Hypothyroidism -continue synthroid 3. Hypertension -continue losartan 4. Transaminitis -for now monitor closely and recheck in AM -hold statin -will need further workup if continues to rise Patient will be admitted inpatient, due to her respiratory distress and the presumed clinical course of disease she will likely require greater than 2 midnights to recover enough for discharge and will very possibly need additional workup for her abnormal liver function if repeat testing shows no improvement. CODE: presumed Full, patient not fully decisive on admission Proxy: Hanny Glaser, daughter I have utilized all available resources to reconcile the patient's home medications Time Spent With Patient Critical Care time: I spent a total of [] minutes of critical care time on this patient's care today; this time is exclusive of procedural time. Quality VTE Deep Vein Thrombosis/Pulmonary Embolism Present on Admission: No
[2021-11-30 00:16] VITALS: BP 155/75; PULSE 72; RESP 16; TEMP 36.5; O2SAT 94
--- NOTE | 2021-11-30 03:08 | PC.NURSE ---
Pt is AxOx4, independent and cooperative. VSS, pt denies pain. Pt is on RA and sats mid 90s. Lungs diminished in all lobes and slighlty coarse on anterior area. Pt coughs sometimes but not productive. Pt slept well. No other changes. Continue monitor.
[2021-11-30 05:02] VITALS: BP 132/78; PULSE 77; RESP 17; TEMP 36.8; O2SAT 93
[2021-11-30 07:00] VITALS: O2SAT 94
[2021-11-30 07:35] VITALS: BP 145/64; PULSE 65; RESP 18; TEMP 36.4; O2SAT 95
[2021-11-30] MEDS: LEVOTHYROXINE 50 MCG TABLET PO ×2 (08:21→08:34)
[2021-11-30] MEDS: ENOXAPARIN 40 MG/0.4 ML SYRINGE SUBCUT (08:21)
[2021-11-30 08:22] VITALS: BP 145/64; PULSE 78
[2021-11-30] MEDS: LOSARTAN 50 MG TABLET PO (08:22)
[2021-11-30] MEDS: DEXAMETHASONE 10 MG/ML VIAL 6 MG IV (08:33)
--- NOTE | 2021-11-30 10:57 | PM.DS.1 ---
History of Present Illness History of Present Illness Date Patient Seen: 11/30/21 Chief complaint: sob Narrative: Per Dr. Heredia, MsBassam Glaser is an 86W with PMH HTN, hypothyroid who presents with coughing and shortness of breath. She stated she has had a cough for nearly two weeks. For the majority of this time she had no significant improvement or worsening. However today she noted she was very short of breath. She could not walk more than 10-15 feet before becoming very short of breath. She had no fevers/chills, no chest pain. She has no changes in appetite, no nausea, vomiting, diarrhea. In the ED vitals notable for afebrile, respiratory rate in the high 20s, desat down to the 80s on room air. Labs notable for WBC 7.9, hgb 13.6. creatinine 0.78. AST/ALT 120/127. COVID positive, flu negative. Chest xray with no acute findings. CT read as moderate pulmonary emphysema and lower lobe smooth bronchial wall thickening. She was ordered for steroid and admitted for further treatment. Family history: asked and patient denied any medical issues with parents Discharge Providers Provider Date of admission: 11/29/21 16:54 Discharge Date: 11/30/21 Primary care physician: Jayme Arizmendi MD Discharge provider: Ishmael Morin DO Summary Hospital Course Discharge Diagnosis: 1. Acute hypoxemic respiratory failure from COVID infection and likely new diagnosis of COPD with exacerbation. 2. Hypothyroidism 3. Hypertension 4. Transaminitis Hospital Course: This is an 86-year-old female with a past medical history of hypertension hypothyroidism who was admitted with shortness of breath in the setting of COVID-19 infection. She was noted to be mildly hypoxic by the emergency room and a few providers, which seemingly rapidly resolved. She was initiated on dexamethasone and remdesevir. She had a mild transaminitis likely due to COVID infection. With above treatments, the patient improved very quickly and she felt well the following day and was not requiring any supplemental oxygen. She was noted on CT angiogram to have evidence of emphysema, but no pulmonary infiltrates or PE. She was discharged on prednisone for presumed COPD exacerbation, and outpatient follow up with her PCP is recommended for formal PFT testing. Albuterol inhaler was also prescribed for as needed symptoms. Exam Vital Signs (past 8 hours): - 11/30/21 05:02 11/30/21 08:22 11/30/21 07:35 Temperature 98.3 F 97.5 F L Pulse Rate 77 78 65 Respiratory Rate 17 18 Blood Pressure 132/78 145/64 H 145/64 H Pulse Oximetry 93 95 Oxygen Delivery Method Room Air Narrative Exam Narrative: GEN: mildly ill appearing female, no acute distress, appears comfortable. HEENT: moist mucous membranes, PERRL NECK: trachea midline, no JVD PULM: decreased breath sounds bilaterally, unable to speak full sentences due to shortnes of breath, increased work of breathing CV: regular rate and rhythm, no murmus ABD: soft, nontender, nondistended, no organomegaly EXT: warm and well perfused with no edema NEURO: awake, alert, oriented, no focal deficits Objective Labs Result Diagrams: 11/29/21 12:49 11/29/21 12:49 Labs: Laboratory Results - last 24 hr 11/29/21 11/29/21 11/29/21 12:49 12:49 12:49 WBC 7.9 RBC 4.65 Hgb 13.6 Hct 41.0 MCV 88.1 MCH 29.3 MCHC 33.2 RDW 14.1 Plt Count 197 Neut % (Auto) 75.4 H Lymph % (Auto) 14.9 L Camas % (Auto) 6.5 Eos % (Auto) 2.4 Baso % (Auto) 0.8 Neut # (Auto) 6000 Lymph # (Auto) 1200 Camas # (Auto) 500 Eos # (Auto) 200 Baso # (Auto) 100 Sodium 141 Potassium 4.7 Chloride 105 Carbon Dioxide 28 BUN 13 Creatinine 0.78 Estimated GFR > 60 BUN/Creatinine Ratio 16.7 Glucose 106 Lactate 1.5 Calcium 8.9 Total Bilirubin 1.0 AST 120 H ALT 127 H Alkaline Phosphatase 101 Total Creatine Kinase CK-MB (CK-2) CK-MB (CK-2) Rel Index Troponin I NT-Pro-B Natriuret Pep Total Protein 6.8 Albumin 3.7 Globulin 3.1 Albumin/Globulin Ratio 1.2 SARS-CoV-2 (PCR) Influenza A (RT-PCR) Influenza B (RT-PCR) RSV (PCR) 11/29/21 11/29/21 12:49 14:22 WBC RBC Hgb Hct MCV MCH MCHC RDW Plt Count Neut % (Auto) Lymph % (Auto) Camas % (Auto) Eos % (Auto) Baso % (Auto) Neut # (Auto) Lymph # (Auto) Cam[place] # (Auto) Eos # (Auto) Baso # (Auto) Sodium Potassium Chloride Carbon Dioxide BUN Creatinine Estimated GFR BUN/Creatinine Ratio Glucose Lactate Calcium Total Bilirubin AST ALT Alkaline Phosphatase Total Creatine Kinase 44 CK-MB (CK-2) TNP CK-MB (CK-2) Rel Index TNP Troponin I < 0.012 NT-Pro-B Natriuret Pep 112 Total Protein Albumin Globulin Albumin/Globulin Ratio SARS-CoV-2 (PCR) Positive H Influenza A (RT-PCR) Flu a negative Influenza B (RT-PCR) Flu b negative RSV (PCR) Negative PFSH Medical History Asthma Breast cancer, right Former smoker, stopped smoking many years ago Hearing impaired History of chemotherapy HLD (hyperlipidemia) HTN (hypertension) Hypothyroidism Impaired vision LAFB (left anterior fascicular block) PVD (peripheral vascular disease) Spinal stenosis Surgical History History of bilateral cataract extraction History of prophylactic mastectomy of left breast History of total left hip arthroplasty Hx of appendectomy Hx of microdiscectomy Social History household members: children Smoking Status: Former smoker alcohol intake: current Discharge Plan Discharge Plan Patient Disposition: Home Provider Discharge Comment: You were admitted to the hospital with shortness of breath. You have COVID infection, but no signs of inflammation on your CT scan of your lung. You do have evidence of emphysema / COPD on your CT and your breathing likely was due to an exacerbation of COPD. This is treated with steroids, and an inhaler was sent for as needed symptoms as well. Please follow up with your PCP next week to check on your symptoms, and to set up formal testing with pulmonary function testing. Discharge orders & Medications Prescriptions: New prednisone 20 mg tablet 40 mg PO DAILY 4 Days Qty: 8 0RF albuterol sulfate 90 mcg/actuation HFA aerosol inhaler 1 inh inhalation QID PRN (Reason: shortness of breath or wheezing) 30 Days Qty: 6.7 0RF benzonatate 100 mg capsule 100 mg PO BID PRN (Reason: cough) Qty: 10 0RF Continued VITAMIN D (Vitamin D3) 1,000 unit PO QDAY Qty: 0 levothyroxine [Synthroid] 50 MCG tablet 0.05 mg PO QDAY Qty: 0 atorvastatin [Lipitor] 20 MG tablet 20 mg PO BEDTIME Qty: 0 losartan 50 MG tablet 50 mg PO BID Qty: 0 Follow up/Referrals: Jayme Arizmendi MD [Primary Care Provider] - 1 Week (New dx COPD, needs PFTs. ) Diet/Activity/Treatments Diet: Diet as Tolerated Activity: As tolerated Visit Report/Discharge Packet Instructions: Chronic Obstructive Pulmonary Disease, DI for Heart Failure, DI for Chronic Obstructive Pulmonary Disease, DI for Prescription Opioid Use Discharge Data Primary Care Provider: Jayme Arizmendi Quality VTE Deep Vein Thrombosis/Pulmonary Embolism Present on Admission: No
[2021-11-30 11:43] VITALS: BP 148/64; PULSE 70; RESP 20; TEMP 36.4; O2SAT 93
--- NOTE | 2021-11-30 11:52 | PC.NURSE ---
Addendum entered by Neel Jerez R.N. 11/30/21 13:51: Daughter here to take Pt home. IV and lunchroom monitor leads discontinued intact. Pt readied for d/c and escorted to family car and into the care of her daughter. Original Note: I would like to go home today. Pt a&o offers no overt complaints. Anticipates going home today. Pt speaking with daughter about d/c. Dr. Hernandez;man in to see Pt. Will d/c when daughter arrives. Daughter here now so we will go over d/c instructions.
--- NOTE | 2021-11-30 13:09 | CM.DANOTE ---
Patient is an 86 yo female who was admitted on 11/29/21 for SOB. Pt has [facility] and [employer] for insurance and her PCP is Dr. Jayme Arizmendi. EMR was reviewed. Per MD, pt COVID+ with hypoxic respiratory failure. CTA showed no infiltrates. Per MD, pt now medically stable to d/c home with no identified barriers to discharge. Pt was last admitted in May 2018 for Ortho surgery and was able to d/c home with Dtr and no needs. Per RN, pt fairly independent in room and no concerns at this time and Dtr on her way in for plan of d/c home today. SW called into pt room due to COVID+ precautions and pt confirms that she still lives at home in [place] with her adult Dtr/DPOA Hanny and is mostly independent with ADL's and utilizes a cane for longer ambulation. Pt confirms that in Dec 2016 pt was discharged to [facility] SNF rehab after surgery before safely going home with Dtr but denies any SNF or HH over the past couple years. Pt's Dtr works but also has local supportive Dtr inlaw that can assist as needed. Pt does not anticipate any needs at d/c and preference is home via Dtr POV today. Plan: SW to follow for plan of d/c to home today via Dtr POV and any further d/c planning needs. OLLIE Rock Discharge Planning/Care Management CM Discharge Assessment Start: 11/30/21 13:07 Freq: Status: Active Protocol: Document 11/30/21 13:07 (Rec: 11/30/21 13:08 [id number]) Discharge Planning Assessment Assigned Automatic Splicing Machine Operator OLLIE Delcid DPOA/Assigned Designee Name Kimberly Gamino Contact Information [phone] Advance Directives? Yes Advance Directives on File No History Provided By Patient,Medical Record Has Patient been admitted in last 30 No days? Prior Living Arrangements House Household Members children Type of transporation used prior to Relies on Others admit Independent with ADL's Yes Is patient alert and oriented? Yes Needs Assistance With Managing Medications,Home Chores / Shopping Caregiver for Another No Barriers to Discharge No Discharge Plan Home Transportation Arrangement Dtr bedside and to provide transport at d/c. Referrals Initiated None needed Review Status In Process Please Provide Date Initial DC 11/30/21 Assessment Was Performed Next Review Type Continued Stay Review
--- NOTE | 2021-12-10 15:09 | PC.NURSE ---
late Entry; Remdesivir infusion initiated 11/29 at 2131 complete 2232.
== END 2021-11-30 12:50 | disposition home or self-care (01) ==
LOC: ED 16:55 → AC 11-30 11:01
PROVIDERS: Admitting Provider Neuromusculoskeletal Medicine, Sports Medicine; Emergency Provider Emergency Medicine; PCP Family Medicine; Referring Provider Emergency Medicine; Visit Provider Neuromusculoskeletal Medicine, Sports Medicine
DX: U07.1 COVID-19 (principal); J96.01 Acute respiratory failure with hypoxia; I10 Essential (primary) hypertension; E78.5 Hyperlipidemia, unspecified; R74.01 Elevation of levels of liver transaminase levels; E03.9 Hypothyroidism, unspecified
CPT/HCPCS: 0241U; 36415; 71046; 71275; 80053; 82550; 83605; 83880; 84484; 85025; 93005; 93010; 94640; 96365; 96372; 96375; 96376; 99284; G0378; J1100; J1650; J7613

== ENCOUNTER → 2022-06-23 10:46 | Outpatient (CLI) | payer OTHER, SELFPAY ==
[2021-11-29 17:47] VITALS: BMI 23.1
--- NOTE | 2022-06-23 | DI.US.S_ITS ---
PROCEDURE: US ABDOMEN LIMITED INDICATIONS: Elevation of levels of liver transaminase levels TECHNIQUE: Real-time scanning was performed of the abdominal and retroperitoneal organs, with image documentation. COMPARISON: None. FINDINGS: Liver: The liver measures 13.3 cm in length and demonstrates increased echogenicity. Gallbladder: The gallbladder wall measures 2.4 mm in diameter. Mobile sludge and gallstones are present within the fundus. No pericholecystic fluid or sonographic Nice sign. Biliary ducts: Intrahepatic bile ducts are non-dilated. Extrahepatic bile duct caliber measures 5.6 mm. Normal is 6-7 mm or less in diameter, or 10 mm or less post-cholecystectomy. Pancreas: The pancreas is poorly characterized. IMPRESSION: 1. Cholelithiasis. No findings to suggest choledocholithiasis or acute cholecystitis. 2. Increased hepatic echogenicity noted likely related to fatty infiltration of the liver but other sources of hepatocellular disease cannot be excluded. Dictated by: Holli Mahoney M.D. on 06/23/2022 at 13:42 Approved by: Holli Mahoney M.D. on 06/23/2022 at 13:45
== END ==
PROVIDERS: PCP Family Medicine; Referring Provider Family Medicine; Visit Provider Family Medicine
DX: K80.20 Calculus of gallbladder without cholecystitis without obstruction (principal); R74.01 Elevation of levels of liver transaminase levels
CPT/HCPCS: 76705

== ENCOUNTER 2022-09-03 17:43 | Observation (INO) | payer OTHER, SELFPAY ==
[2021-11-29 17:47] VITALS: BMI 23.1
[2022-08-29 11:39] VITALS: BMI 23.8
[2022-09-03] VITALS (16 sets, daily range): BP systolic 107–166; BP diastolic 52–90; PULSE 57–110; RESP 12–22; TEMP 35.8–36.5; O2SAT 91–98; BMI 23.8; BMI 24.7
--- NOTE | 2022-09-03 | PATH_ITS ---
[facility] Accession Number: [id number] No. of containers..01 Tissue . 01 Material submitted: . gallbladder - GALLBLADDER . 01 Diagnosis: Gallbladder, Cholecystectomy: Mild chronic cholecystitis. [facility] 09/11/2022 1047 Local . 01 Electronically signed: . Mayda Peñaloza MD, Pathologist NPI- [id number] . 01 Gross description: . Received in formalin, labeled with the patient's name and gallbladder, is a 6.8 x 3.6 x 3.4 cm, yellow-green, smooth, glistening gallbladder with a clipped cystic duct margin and smooth, glistening, fatty serosa. The lumen is distended by green-gracia viscous bile with no calculi identified. The mucosa is green-garcia, smooth, and velvety. The wall thickness averages 0.2 cm. Personnel Counselor sections are submitted in cassette A1. ([id number]) /[facility] 09/06/2022 1552 Local . 01 Pathologist provided ICD-10: K81.1 . 01 CPT . 403118 Specimen Comment: A courtesy copy of this report has been sent to [phone] Performed at: 01 [facility] [address] [place] [address] [address] [facility], [place], [place] [id number] MD Carlton Olivarez MD Phone: [phone]
[2022-09-03] MEDS: LACTATED RINGERS 1,000 ML 100 ML IV (11:51)
--- NOTE | 2022-09-03 13:35 | PM.PREOP ---
Pre-operative Note Interval Note History & Physical reviewed/Exam performed by Physician: Yes Changes to H&P: No
[2022-09-03] MEDS: CEFAZOLIN 2 GM/100 ML PREMIX 100 ML IV (14:25)
--- NOTE | 2022-09-03 14:37 | SUR.OPER ---
Supine on padded OR bed, head on pillow, safety belt at thigh, left arm padded and tucked at side. Right arm secured on padded arm board <90 degrees abduction. Legs uncrossed. Padded footboard in place. Tape over blanket to secure lower legs. Gel pad to bilateral heels.
[2022-09-03] MEDS: ACETAMINOPHEN IV 1,000 MG/100 ML VIAL 400 MG IV (14:43)
[2022-09-03] MEDS: BUPIVACAINE 0.25% (PF) VIAL 30 ML INJ (15:04)
--- NOTE | 2022-09-03 15:04 | PM.OP.1 ---
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 Duodenum adherent to gallbladder. Specimen(s): other (Gallbladder) Estimated Blood Loss (mL): 20 Procedure in detail: The patient was placed supine on the table and bilateral lower extremity compression devices were applied. Anesthesia was induced they were intubated with an endotracheal tube and received 2g of Ancef. A time-out was performed. They were prepped and draped in sterile fashion. An infraumbilical incision was made. The fascia was elevated incised and the abdomen was entered atraumatically. A blunt tip 12mm balloon trocar was then inserted, pneumoperitoneum was established and inspection of the abdomen demonstrated no evidence of injury. They were placed head up and right side up and then a 11 mm port was placed high in the epigastrium and two 5mm in the right upper quadrant. The gallbladder was grasped by the fundus and retracted over the liver and retracted laterally by the infundibulum. The gallbladder was chronically inflamed consistent with chronic cholecystitis. There were adhesions between the gallbladder and the duodenum which were sharply taken down. Using electrocautery the lateral plane between the gallbladder and the liver was opened towards the fundus. The gallbladder was then retracted laterally and the medial plane was developed in the same manner. With the gallbladder mobilized the bottom of the cystic plate was visualized. The hepatocystic triangle was meticulosly skeletonized with blunt dissection of fat and fibrous tissue from both the front and the back. Only two structures were then clearly seen entering the gallbladder the cystic duct and the cystic artery. With the critical view of safety fully established the cystic duct was clipped twice proximally and once distally using the 10 mm Weck hemoclip applied under direct visualization and then sharply divided. The cystic artery was divided in the same fashion. The gallbladder was removed from the liver bed using electro cautery. The liver bed was then inspected for hemostasis and this was achieved. The abdomen was irrigated with sterile saline and inspection was made that showed the clips in good position. The specimen was removed using Endo-Catch. The abdomen was desufflated. The umbilical fascia was closed with 0 Vicryl in a [id number] fashion under direct visualization. Skin incisions were irrigated and closed with 4-0 Monocryl. 30 ml of 0.25% bupivacaine was infiltrated into the subcutaneous tissue of the incisions. The wounds were sealed with Dermabond. Patient emerged from anesthesia was extubated and transferred to recovery in stable condition. The sponge and instrument count at the end of the operation was correct. Complications: none Post-operative Condition: stable Disposition: same day surgery
--- NOTE | 2022-09-03 15:29 | SUR.PHASEI ---
Mumbling occasionally, difficult to understand.
[2022-09-03] MEDS: OXYCODONE IR 5 MG TABLET PO (15:58)
[2022-09-03] MEDS: ONDANSETRON 4 MG/2 ML INJ IV (16:25)
[2022-09-03] MEDS: hydrOXYzine 50 MG/ML INJ 25 MG IM (16:45)
--- NOTE | 2022-09-03 16:50 | SUR.PHASEII ---
Dr Swan notified of continued nausea. See new order.
[2022-09-03] MEDS: ePHEDrine 50 MG/ML VIAL 25 MG IM (17:23)
[2022-09-03] MEDS: ACETAMINOPHEN 325 MG TABLET 650 MG PO (18:42)
[2022-09-03] MEDS: IBUPROFEN 600 MG TABLET PO (18:42)
[2022-09-03] MEDS: LACTATED RINGERS 1,000 ML 50 ML IV (19:00)
--- NOTE | 2022-09-03 19:08 | PC.NURSE ---
Pt arrived via gurney, moved to bed with slide board, connected to monitoring equipment, denies nausea or pain, able to make needs known, oriented to room and call light system. Bed low and locked, call light within reach, will continue to monitor.
[2022-09-04] VITALS: BP 139/66; PULSE 84; RESP 16; TEMP 36.1; O2SAT 95
[2022-09-04 02:00] VITALS: O2SAT 94
[2022-09-04 04:00] VITALS: BP 134/71; PULSE 77; RESP 16; TEMP 36.1; O2SAT 98
[2022-09-04] MEDS: LEVOTHYROXINE 50 MCG TABLET PO (05:42)
[2022-09-04] MEDS: IBUPROFEN 600 MG TABLET PO (05:42)
[2022-09-04] MEDS: ACETAMINOPHEN 325 MG TABLET 650 MG PO (05:42)
[2022-09-04 06:00] VITALS: O2SAT 97
[2022-09-04 08:00] VITALS: BP 125/52; PULSE 58; RESP 14; TEMP 35.9; O2SAT 92
--- NOTE | 2022-09-04 09:38 | CM.DANOTE ---
Patient is an 86 yo female who was admitted on 09/03/22 for Lap Stacie. Pt has [facility] for insurance and her PCP is Dr. Jayme Arizmendi. EMR was reviewed. Per Surgeon, pt tolerated diet and voiding and medically stable to discharge home today with no identified barriers to discharge. SW met bedside and explained role and pt confirms that she still lives at home in [place] with her adult Dtr/DPOA Hanny who works but took a few days off work to assist pt post surg and pt is mostly independent with ADL's and utilizes a cane for longer ambulation outside of the home. Pt confirms that in Dec 2016 pt was discharged to [facility] SNF rehab after surgery before safely going home with Dtr but denies any SNF or HH over the past couple years. Pt was last admitted on Nov 2021 last year for COVID and was able to discharge home with Dtr. Pt's Dtr works but also has local supportive Dtr inlaw that can assist as needed. Pt does not anticipate any needs at d/c and preference is home via Dtr POV today. Dtr will be bedside later this morning to transport home. Plan: Patient to d/c home with Dtr assist and outpt f/u and no further needs. OLLIE Rock Discharge Planning/Care Management CM Discharge Assessment Start: 09/04/22 09:33 Freq: Status: Active Protocol: Document 09/04/22 09:33 BF (Rec: 09/04/22 09:38 BF [id number]) Discharge Planning Assessment Assigned Tire Specialist OLLIE Delcid DPBARBARA/Assigned Designee Name Kimberly Hanny Contact Information [phone] Advance Directives? Yes Advance Directives on File No History Provided By Patient,Medical Record Has Patient been admitted in last 30 No days? Comment last admit in Nov 2021 last year for COVID and went home Prior Living Arrangements House Household Members children Type of transporation used prior to Relies on Others admit Independent with ADL's Yes Is patient alert and oriented? Yes Needs Assistance With Home Chores / Shopping Caregiver for Another No DME Already Rented / Owned Cane Comment Uses a cane outside of the house Barriers to Discharge No Discharge Plan Home Transportation Arrangement Dtr bedside and to provide transport at d/c. Referrals Initiated None needed Whiteboard Updated in Patient Room with Yes name and ext. # of Tire Specialist Review Status In Process Please Provide Date Initial DC 09/04/22 Assessment Was Performed Next Review Type Continued Stay Review Pre-Anesthesia Assessment Start: 08/25/22 12:24 Freq: Status: Active Protocol: Document 08/29/22 11:39 CAB (Rec: 08/29/22 11:50 CAB [id number]) Pre-Anesthesia Assessment Patient Information Reviewed Via Chart Review Primary Care Provider Jayme Arizmendi Seen Specialist in Last 12 Months Yes Specialist Seen General surgeon Primary Language Georgian Preferred Language Georgian Supervisor Blast Furnace Auxiliaries Required No Height 167.64 cm Weight 67.132 kg Body Mass Index (BMI) 23.8 Hearing Ability Hearing Impaired,Use of Hearing Aid Other Aids No Hx Anesthesia Reactions Yes: Problem waking up. Nausea, vomiting post-op Hx Family Anesthesia Reaction No Hx Malignant Hyperthermia No Hx Blood Transfusions Yes: 2005 r/t chemo Hx Blood Transfusion Reaction No Anesthesia Review Requested No Onsite Case Manager No alcohol intake current alcohol intake frequency holidays/special occasions only Smoking Status Former smoker Tobacco type cigarettes how long ago did patient quit smoking Quit over 40 years ago Substance Use Type does not use Patient is completely paralyzed or No completely immobile Prosthesis or Orthotic Device Cane Mental Status Oriented to own ability Is patient on oxygen? No Does patient have SALAS/SOB No Hx Sleep Apnea No Currently Taking a Beta Allie No Can You Climb a Flight of Stairs Without Yes SOB Hx Chest Pain No Hx SOB No Hx Syncope or Dizziness No Anti-Coagulant Therapy No Cardiac Testing No Hx Pacemaker/ICD No Pacemaker Rep Required? No Urinary Catheter Present No Hx Urinary Self Catheterization No Diabetes No Patient No Lactating No Hx Drug Resistant Organism No Presence of External or Internal Medical Yes: Bilat hip prosthesis, eye Devices IOLs Received a COVID vaccine? Yes Marital Status Unknown Lives With children Patient Discharge Plan Description Return Home Do You Have Any Spiritual Beliefs That No May Affect Your HC Choices? Do You Have Any Cultural Practices That No May Affect Your HC Choices? Emergency Contact Name Hanny (daughter) Emergency Contact Advance Directives? Yes Advance Directives on File No Power of Energy Systems Laboratory Director Yes Power of Energy Systems Laboratory Director Name Hanny (daughter) Power of Energy Systems Laboratory Director
[2022-09-04 10:00] VITALS: O2SAT 92
--- NOTE | 2022-09-04 11:02 | PC.NURSE ---
Pt discharged home at 1100, escorted off floor in wheelchair accompanied by daughter and hospital staff. IV removed, discharge teaching completed including follow up appointments, new medications and wound care. Questions answered. Patient left the floor with all belongings.
== END 2022-09-04 11:07 | disposition home or self-care (01) ==
LOC: AC 17:59
PROVIDERS: Admitting Provider Surgery; PCP Family Medicine; Referring Provider Surgery; Visit Provider Surgery
PROC: 0FT44ZZ Resection of Gallbladder, Percutaneous Endoscopic Approach (ICD-10-PCS; CPT 47562; principal; 2022-09-03 14:30)
DX: K81.1 Chronic cholecystitis (principal)
CPT/HCPCS: 47562; 82962; G0378; J0131; J0690; J1100; J2405; J2704; J3010; J3410

== ENCOUNTER → 2023-08-04 10:23 | Outpatient (CLI) | payer OTHER, SELFPAY ==
[2022-09-03 18:16] VITALS: BMI 24.7
--- NOTE | 2023-08-04 | DI.CT.S_ITS ---
PROCEDURE: CT ABDOMEN W CON INDICATIONS: Dysphagia, pharyngoesophageal phase TECHNIQUE: After the administration of intravenous contrast, 5 mm thick sections acquired from the diaphragms to the iliac crests. 5 mm thick coronal and sagittal reformats were acquired. For radiation dose reduction, the following was used: automated exposure control, adjustment of mA and/or kV according to patient size. COMPARISON: None. FINDINGS: Image quality: Diagnostic. Lower Chest: Small hiatal hernia. Mild cardiomegaly. ABDOMEN: Liver: No solid mass. Gallbladder: Absent. Biliary ducts: No biliary dilation. Pancreas: No ductal dilation. Spleen: Size is within normal limits. Adrenal Glands: No adrenal nodules. Kidneys and Ureters: No hydronephrosis. No solid mass. No complex renal cystic lesion which requires follow up. Stomach and Bowel: Normal colonic caliber, without significant wall thickening. Peritoneum: No abnormal intraperitoneal fluid. No free air. Ventral Wall: Small umbilical hernia containing fat. Abdominal Nodes: No retroperitoneal or mesenteric adenopathy by size criteria. Vessels: Aorta and inferior vena cava are normal in size. Bones: No aggressive osseous abnormality. Degenerative disc disease of the lumbar spine. Surgical fusion L4-5. Convex right scoliosis of the thoracolumbar spine, centered at L1. IMPRESSION: Small hiatal hernia. Note: Consider barium esophagram for evaluation of esophageal dysmotility, a common cause of dysphagia. Dictated by: Manjeet Hardwick M.D. on 08/04/2023 at 14:27 Approved by: Manjeet Hardwick M.D. on 08/04/2023 at 14:30
== END ==
PROVIDERS: PCP Family Medicine; Referring Provider Family Medicine; Visit Provider Family Medicine
DX: R13.14 Dysphagia, pharyngoesophageal phase (principal); K44.9 Diaphragmatic hernia without obstruction or gangrene; I51.7 Cardiomegaly; K42.9 Umbilical hernia without obstruction or gangrene; M51.36 Other intervertebral disc degeneration, lumbar region; M51.9 Unspecified thoracic, thoracolumbar and lumbosacral intervertebral disc disorder; Z98.1 Arthrodesis status; Z90.49 Acquired absence of other specified parts of digestive tract
CPT/HCPCS: 74160; Q9967

== ENCOUNTER 2023-12-06 15:30 | Emergency (ER) | payer OTHER, SELFPAY ==
[2022-09-03 18:16] VITALS: BMI 24.7
--- NOTE | 2023-10-06 18:34 | EKG_ITS ---
[address] [address] Test Date: 2023-12-06 Pat Name: Kenisah Glaser Department: Room: Gender: Female Gunner'S Mate G: KIM : 1935 Requested By: Order Number: [id number] Reading MD: Ishmael Morin Measurements Intervals [place] Rate: 96 P: 75 [place]: 178 QRS: -51 QRSD: 80 T: 74 QT: 368 QTc: 464 Interpretive Statements Normal sinus rhythm Left anterior fascicular block Nonspecific T wave abnormality Electronically Signed On 12-08-2023 14:43:56 PDT by Ishmael Morin
[2023-12-06] VITALS (18 sets, daily range): BP systolic 124–190; BP diastolic 58–90; PULSE 62–98; RESP 16–28; TEMP 36.4–36.6; O2SAT 93–97; BMI 23.8
--- NOTE | 2023-12-06 15:44 | DI.RAD.S_ITS ---
PROCEDURE: XR CHEST 1V INDICATIONS: Shortness of breath TECHNIQUE: One view of the chest was acquired. COMPARISON: [facility], , XR CHEST 2V, 11/29/2021, 12:26. [facility], CR, XR CHEST 2V, 11/21/2021, 14:04. (Additional prior imaging is not available for review from the archive at the time of this dictation.) FINDINGS: Surgical changes and devices: Bilateral chest wall clips are seen. Lungs and pleura: Lungs are clear. No pleural effusions or pneumothorax. Mediastinum: The cardiac contours are within normal limits. The aorta demonstrates calcification and tortuosity. Bones and chest wall: No suspicious bony lesions. Age-appropriate bony degenerative changes are seen. Overlying soft tissues appear unremarkable. IMPRESSION: No acute cardiopulmonary process is seen. Postoperative and degenerative changes are seen. Dictated by: Graeme Gandhi M.D. on 12/06/2023 at 15:29 Approved by: Graeme Gandhi M.D. on 12/06/2023 at 15:30
--- NOTE | 2023-12-06 15:51 | EKG_ITS ---
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
[2023-12-06] MEDS: ALBUTEROL 2.5 MG/3 ML NEB (ADULT) INH (15:57)
[2023-12-06 16:07] LABS: Add Manual Diff / Slide Review NO; Basophils Absolute Auto 100 /uL (0-100); Basophils Percent Auto 0.9 % (0-2); Eosinophils Absolute Auto 900 /uL (0-450); Eosinophils Percent Auto 11.2 % (2-4); Hematocrit 43.4 % (36-46); Hemoglobin 14.8 g/dL (12.0-16.0); Lymphocytes Absolute Auto 1300 /uL (1100-4500); Lymphocytes Percent Auto 17.3 % (25-40); Mean Corpuscular Hemoglobin 30.4 PG (26-34); Mean Corpuscular Volume 89.4 fL (80-100); Monocytes Absolute Auto 400 /uL (0-900); Monocytes Percent Auto 5.3 % (3-14); Neutrophils Absolute Auto 5000 /uL (1500-7000); Neutrophils Percent Auto 65.3 % (50-75); Platelet Count 202 X10^3/uL (150-400); Red Blood Cell Count 4.86 X10^6/uL (4.0-5.2); Red Cell Distribution Width 13.7 % (11.6-14.8); White Blood Cell Count 7.7 X10^3/uL (4.5-11.0)
[2023-12-06 16:12] LABS: Prothrombin Time 11.5 SECONDS (9.4-12.5)
[2023-12-06 16:16] LABS: Alanine Aminotransferase 21 IU/L (<35); Albumin 4.2 g/dL (3.5-5.0); Albumin Globulin Ratio 1.6 (1.0-2.8); Alkaline Phosphatase 77 U/L (38-126); Aspartate Aminotransferase 25 IU/L (14-36); BUN Creatinine Ratio 21.3 (6-22); Bilirubin Total 1.2 mg/dL (0.2-1.3); Blood Urea Nitrogen 17 mg/dL (7-17); Calcium 9.5 mg/dL (8.4-10.2); Carbon Dioxide 24 mmol/L (22-32); Chloride 107 mmol/L (98-107); Estimated Glomerular Filt Rate > 60 mL/min (>60); Globulin 2.6 g/dL (1.7-4.1); Glucose 152 mg/dL (80-110); HEMOLYSIS < 15 (0-50); Sodium 139 mmol/L (137-145); Total Protein 6.8 g/dL (6.3-8.2)
[2023-12-06 16:17] LABS: Lactate (Lactic Acid) 1.9 mmol/L (0.7-2.1)
[2023-12-06 16:28] LABS: NT-proBNP (BNP-Adult 18+) 212 pg/mL (<450); Troponin I < 0.012 ng/mL (0.01-0.034)
[2023-12-06 17:14] LABS: Influenza A - CEPHEID Flu A NEGATIVE (NEGATIVE); Influenza B - CEPHEID Flu B NEGATIVE (NEGATIVE); Respiratory Syncytial Virus Negative (Negative)
[2023-12-06 17:29] LABS: COVID-19 CEPHEID 4-PLEX PCR Negative (Negative)
--- NOTE | 2023-12-06 18:19 | ED.SOB ---
HPI - SOB/Dyspnea General Chief Complaint: Shortness of Breath/Dyspnea Stated Complaint: cough, sob Time Seen by Provider: 12/06/23 16:26 Source: patient Mode of arrival: Ambulatory Limitations: no limitations History of Present Illness HPI Narrative: 88-year-old female with 1 week duration of cough nonproductive, increasing shortness of breath, history of inhaler use in the past, no oxygen requirement. She denies chest pain. No fevers or chills. No recent course of antibiotics. No close contact recent exposure to persons known to have COVID or influenza or other respiratory illnesses. No history of congestive heart failure, denies swelling to legs, no pain in legs. No history of blood clots to legs or lungs. No chronic blood thinner medications. Related Data Home Medications Medication Instructions Recorded Confirmed VITAMIN D (Vitamin D3) 1,000 unit PO QDAY ##0 07/16/12 09/18/22 levothyroxine 50 mcg tablet 0.05 mg PO QDAY ##0 10/01/12 09/18/22 (Synthroid) atorvastatin 20 mg tablet (Lipitor) 20 mg PO BEDTIME ##0 12/24/15 09/18/22 losartan 50 mg tablet 50 mg PO BID ##0 12/17/16 09/18/22 albuterol sulfate 90 mcg/actuation 2 puff inhalation Q6H PRN asthma 08/14/22 09/18/22 aerosol inhaler calcium carbonate (Calcium 600) 600 mg PO DAILY 08/14/22 09/18/22 solifenacin 5 mg tablet 5 mg PO DAILY 08/14/22 09/18/22 Previous Rx's Medication Instructions Recorded acetaminophen 325 mg capsule 650 mg (2 x 325 mg) PO QID PRN 09/03/22 (Tylenol) pain #60 caps ibuprofen 200 mg tablet 400 mg (2 x 200 mg) PO Q6H #60 tabs 09/03/22 tramadol 50 mg tablet 50 mg PO Q6H PRN pain #10 tabs 09/03/22 albuterol sulfate 90 mcg/actuation 2 puff inhalation Q6H PRN 12/06/23 aerosol inhaler shortness of breath or wheezing #8.5 grams prednisone 20 mg tablet 40 mg (2 x 20 mg) PO DAILY 5 days 12/06/23 #10 tabs Allergies Allergy/AdvReac Type Severity Reaction Status Date / Time diclofenac [DICLOFENAC] AdvReac Intermediate NAUSEA/VOMI Verified 09/18/22 15:41 TING bismuth subsalicylate AdvReac Sick Verified 09/18/22 15:41 POTATO STARCH Allergy Severe Facial Uncoded 09/18/22 15:41 swelling OYSTER SHELL AdvReac Intermediate Vomiting Uncoded 09/18/22 15:41 Review of Systems Review of Systems Narrative: see HPI Patient History Medical History (Updated 12/06/23 @ 18:55 by Roberto Herring MD) Anesthesia complication Spinal stenosis PVD (peripheral vascular disease) Hypothyroidism History of chemotherapy Breast cancer, right LAFB (left anterior fascicular block) HTN (hypertension) HLD (hyperlipidemia) Asthma Impaired vision Former smoker, stopped smoking many years ago Hearing impaired Surgical History (Updated 08/29/22 @ 11:41 by Diane Cruz RN) History of bilateral mastectomy 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 HEAD: Atraumatic. Normocephalic. EYES: Pupils equal round and reactive. Extraocular motions intact. No scleral icterus. No injection or drainage. ENT: Nose without bleeding, purulent drainage. Throat without erythema, tonsillar hypertrophy or exudate. Airway patent. NECK: Trachea midline. Non tender CARDIOVASCULAR: Regular rate and rhythm without murmurs, gallops, or rubs. RESPIRATORY: Auscultation by me after SVN given, with wheezing bilateral, speaks in full sentences, no suprasternal or intercostal retractions. No crackles to bases. No tenderness to chest wall. GASTROINTESTINAL: Abdomen soft, non-tender, nondistended. EXTREMITIES: No edema or joint tenderness. BACK: Nontender without deformity or crepitance. No flank tenderness. NEURO: AOx3. Motor functions grossly nonfocal SKIN: No rash or erythema of visible areas Initial Vital Signs Initial Vital Signs: Vital Signs Temperature 97.5 F L 12/06/23 15:36 Pulse Rate 89 12/06/23 15:36 Respiratory Rate 18 12/06/23 15:36 Blood Pressure 145/73 H 12/06/23 15:36 Pulse Oximetry 94 12/06/23 15:36 Oxygen Delivery Method Room Air 12/06/23 15:36 Course Orders Ordered: ED Orders 12/06/23 15:44 XR chest 1V Stat EKG-12 Lead Stat Measure peak expiratory flow ONCE RT Consult Eval and Treat NOW 12/06/23 16:30 Covid-19 + FLU A/B + RSV - PCR Stat 12/06/23 19:15 Troponin I Stat Discontinued Medications Albuterol (Albuterol 2.5 Mg/3 Ml Neb (Adult)) 2.5 mg INH NOW ONE Stop: 12/06/23 15:51 Last Admin: 12/06/23 15:57 Dose: 2.5 mg Documented By: SAT Albuterol/Ipratropium (Albuterol/Ipratropium 3 Ml Ampul) 3 ml INH NOW ONE Stop: 12/06/23 18:46 Last Admin: 12/06/23 19:07 Dose: 3 ml Documented By: PV Methylprednisolone (Methylprednisolone 125 Mg/2 Ml Vial) 125 mg IV NOW ONE Stop: 12/06/23 18:46 Last Admin: 12/06/23 18:57 Dose: 125 mg Documented By: RB Vital Signs Vital signs: Vital Signs - 8 hr 12/06/23 17:00 12/06/23 17:00 12/06/23 17:30 Temperature Pulse Rate 67 Respiratory Rate 16 Blood Pressure 132/60 138/64 Pulse Oximetry 93 Oxygen Delivery Method Fraction of Inspired Oxygen 12/06/23 17:30 12/06/23 18:00 12/06/23 18:00 Temperature Pulse Rate 67 62 Respiratory Rate 22 22 Blood Pressure 124/61 Pulse Oximetry 97 95 Oxygen Delivery Method Fraction of Inspired Oxygen 12/06/23 18:30 12/06/23 18:31 12/06/23 18:31 Temperature Pulse Rate 66 63 Respiratory Rate 27 H 28 H Blood Pressure 169/73 H Pulse Oximetry 97 97 Oxygen Delivery Method Fraction of Inspired Oxygen 12/06/23 19:00 12/06/23 19:00 12/06/23 19:10 Temperature Pulse Rate 85 71 Respiratory Rate 20 Blood Pressure 190/74 H Pulse Oximetry 95 97 Oxygen Delivery Method Room Air Fraction of Inspired Oxygen 21 12/06/23 19:30 12/06/23 20:00 12/06/23 20:30 Temperature 97.8 F Pulse Rate 68 79 67 Respiratory Rate 23 18 22 Blood Pressure Pulse Oximetry 93 95 93 Oxygen Delivery Method Fraction of Inspired Oxygen 12/06/23 20:48 12/06/23 20:48 Temperature Pulse Rate 67 Respiratory Rate 18 Blood Pressure 156/68 H Pulse Oximetry 96 Oxygen Delivery Method Fraction of Inspired Oxygen MDM - SOB/Dyspnea Lab Data Attestation: I reviewed the patient's lab results. Lab results narrative: White blood cell count 7700, hemoglobin 14.8, platelets 202. Basic metabolic panel normal, glucose 152. Troponin negative. BNP not elevated. Liver functions normal. COVID/influenza/RSV negative 12/06/23 15:06 12/06/23 15:06 Labs: Lab Results 12/06/23 12/06/23 12/06/23 Range/Units 15:06 16:30 19:15 WBC 7.7 (4.5-11.0) X10^3/uL RBC 4.86 (4.0-5.2) X10^6/uL Hgb 14.8 (12.0-16.0) g/dL Hct 43.4 (36-46) % MCV 89.4 (80-100) fL MCH 30.4 (26-34) PG MCHC 34.0 (30-36) % RDW 13.7 (11.6-14.8) % Plt Count 202 (150-400) X10^3/uL Neut % (Auto) 65.3 (50-75) % Lymph % (Auto) 17.3 L (25-40) % Dewitt % (Auto) 5.3 (3-14) % Eos % (Auto) 11.2 H (2-4) % Baso % (Auto) 0.9 (0-2) % Neut # (Auto) 5000 (9192-1003) /uL Lymph # (Auto) 1300 (3588-7726) /uL Dewitt # (Auto) 400 (0-900) /uL Eos # (Auto) 900 H (0-450) /uL Baso # (Auto) 100 (0-100) /uL PT 11.5 (9.4-12.5) SECONDS INR 1.0 (0.9-1.3) Sodium 139 (137-145) mmol/L Potassium 4.0 (3.4-5.1) mmol/L Chloride 107 (98-107) mmol/L Carbon Dioxide 24 (22-32) mmol/L BUN 17 (7-17) mg/dL Creatinine 0.80 (0.52-1.04) mg/dL Estimated GFR > 60 (>60) mL/min BUN/Creatinine Ratio 21.3 (6-22) Glucose 152 H (80-110) mg/dL Lactate 1.9 (0.7-2.1) mmol/L Calcium 9.5 (8.4-10.2) mg/dL Total Bilirubin 1.2 (0.2-1.3) mg/dL AST 25 (14-36) IU/L ALT 21 (<35) IU/L Alkaline Phosphatase 77 (38-126) U/L Troponin I < 0.012 < 0.012 (0.01-0.034) ng/mL NT-Pro-B Natriuret Pep 212 (<450) pg/mL Total Protein 6.8 (6.3-8.2) g/dL Albumin 4.2 (3.5-5.0) g/dL Globulin 2.6 (1.7-4.1) g/dL Albumin/Globulin Ratio 1.6 (1.0-2.8) SARS-CoV-2 (PCR) Negative (Negative) Influenza A (RT-PCR) Flu a negative (NEGATIVE) Influenza B (RT-PCR) Flu b negative (NEGATIVE) RSV (PCR) Negative (Negative) Imaging Data Chest x-ray: Radiologist's Impression: [address] [address] XRay Report Signed Patient: Kenisha Glaser MR#: [id number] : 1935 Acct:[id number] Age/Sex: 88 / F Date of Service: 12/06/23 Loc: ED Accession Number: [id number] Procedure: XR chest 1V Ordering Provider: Valentina Valadez MD PROCEDURE: XR CHEST 1V INDICATIONS: Shortness of breath TECHNIQUE: One view of the chest was acquired. COMPARISON: [facility], CR, XR CHEST 2V, 11/29/2021, 12:26. [facility], CR, XR CHEST 2V, 11/21/2021, 14:04. (Additional prior imaging is not available for review from the archive at the time of this dictation.) FINDINGS: Surgical changes and devices: Bilateral chest wall clips are seen. Lungs and pleura: Lungs are clear. No pleural effusions or pneumothorax. Mediastinum: The cardiac contours are within normal limits. The aorta demonstrates calcification and tortuosity. Bones and chest wall: No suspicious bony lesions. Age-appropriate bony degenerative changes are seen. Overlying soft tissues appear unremarkable. IMPRESSION: No acute cardiopulmonary process is seen. Postoperative and degenerative changes are seen. Dictated by: Graeme Gandhi M.D. on 12/06/2023 at 15:29 Approved by: Graeme Gandhi M.D. on 12/06/2023 at 15:30 ECG Data Attestation: I personally reviewed and interpreted this ECG as follows: Interpretation: 1551, normal sinus rhythm with rate 82, left anterior fascicular block, significant artifact in anterior leads, not interpretable and no sections, no obvious ischemic changes to interpretable leads 123 AVF aVL AVR. [place] 184, QRS 82, QTC 453. We will repeat study to interpret all leads. 1834, normal sinus rhythm with rate of 96, no obvious ST segment elevation or depression changes. Left anterior fascicular block again seen. W[place] 178, QRS 80, QTC 464. [facility] Narrative Medical decision making narrative: 88-year-old female with one-week duration cough and increasing shortness of breath, wheezing on examination, possible COPD exacerbation. No oxygen requirement. COVID/flu swabs negative. Chest x-ray negative. EKG initial study significant artifact, repeated, nonischemic appearing. Initial troponin negative. We will give DuoNeb, IV Solu-Medrol. Subjectively improving after breathing treatment, anticipate discharge home on oral prednisone pulse. Interval repeat troponin negative. Subjectively improved with breathing treatments. No oxygen requirement. No respiratory distress. Prescription for albuterol inhaler, and oral prednisone pulse steroid sent to her pharmacy. Recheck with the regular doctor advised this week, return precautions discussed. Improved, stable, home with family. Discharge Plan Departure Patient Disposition: Home Clinical Impression: Asthma exacerbation in COPD Instructions: DI for Chronic Obstructive Pulmonary Disease Activity Restrictions/Additional Instructions: One-week duration cough with increasing shortness of breath, wheezing on examination, chest x-ray showed no infiltrates suggestive of pneumonia, nor fluid overload heart failure like changes. COVID/flu/RSV viral swabs negative. IV steroid given. Breathing treatments given. No oxygen requirement. Take further steroids for the next few days prednisone, prescription sent to your pharmacy. Use inhaler at home with spacer 2 puffs 4 times daily for the next week or so, then as needed. Recheck symptoms early this week with your regular doctor to review symptoms. Return to this/nearest emergency department for any change worsening symptoms or any concerns prior Prescriptions: New albuterol sulfate 90 mcg/actuation HFA aerosol inhaler 2 puff inhalation Q6H PRN (Reason: shortness of breath or wheezing) Qty: 8.5 0RF prednisone 20 mg tablet 40 mg PO DAILY 5 Days Qty: 10 0RF No Action VITAMIN D (Vitamin D3) 1,000 unit PO QDAY Qty: 0 levothyroxine [Synthroid] 50 MCG tablet 0.05 mg PO QDAY Qty: 0 atorvastatin [Lipitor] 20 MG tablet 20 mg PO BEDTIME Qty: 0 losartan 50 MG tablet 50 mg PO BID Qty: 0 solifenacin 5 mg tablet 5 mg PO DAILY albuterol sulfate 90 mcg/actuation HFA aerosol inhaler 2 puff inhalation Q6H PRN (Reason: asthma) calcium carbonate [Calcium 600] 600 mg calcium (1,500 mg) tablet 600 mg PO DAILY ibuprofen 200 mg tablet 400 mg PO Q6H Qty: 60 0RF acetaminophen [Tylenol] 325 mg capsule 650 mg PO QID PRN (Reason: pain) Qty: 60 0RF tramadol 50 mg tablet 50 mg PO Q6H PRN (Reason: pain) Qty: 10 0RF Referrals: Jayme Arizmendi MD [Primary Care Provider] - Stand Alone Forms: Patient Portal/API
[2023-12-06] MEDS: methylPREDNISolone 125 MG/2 ML VIAL IV (18:57)
[2023-12-06] MEDS: ALBUTEROL/IPRATROPIUM 3 ML AMPUL INH (19:07)
[2023-12-06 19:44] LABS: Troponin I < 0.012 ng/mL (0.01-0.034)
== END 2023-12-06 22:11 | disposition home or self-care (01) ==
PROVIDERS: Emergency Medicine; Emergency Provider Emergency Medicine; PCP Family Medicine
DX: J44.1 Chronic obstructive pulmonary disease with (acute) exacerbation (principal); R05.9 Cough, unspecified; Z11.52 Encounter for screening for COVID-19
CPT/HCPCS: 0241U; 36415; 71045; 80053; 83605; 83880; 84484; 85025; 85610; 93005; 94640; 96374; 99284; J2919; J7613